=== PATIENT | female | born 1970 | race Caucasian/White ===

== ENCOUNTER 2024-06-18 12:12 | Inpatient (IN) ==
[2024-06-18] MEDS: LORazepam 1 MG TAB SL STA (12:40)
[2024-06-18] MEDS: ASPIRIN CHEW 324 MG PO STA (12:40)
[2024-06-18] MEDS: SODIUM CHLORIDE 0.9% 1,000 ML IV ONE (12:41)
[2024-06-18] MEDS: SODIUM CHLORIDE 0.9% 1,000 ML IV STA (12:43)
[2024-06-18] MEDS: METOPROLOL TARTRATE 1 MG/ML VIAL IV STA (12:57)
[2024-06-18 13:06] LABS: Basophils # (auto) 0.04 K/uL (0.00-0.20); Basophils % (auto) 0.3 %; Eosinophils # (auto) 0.05 K/uL (0.00-0.50); Eosinophils % (auto) 0.4 %; Hemoglobin 16.3 g/dl (12.0-16.0); Immature Granulocytes # (auto) 0.04 K/uL (0.01-0.20); Immature Granulocytes % (auto) 0.3 %; Lymphocytes # (auto) 2.35 K/uL (1.20-3.40); Lymphocytes % (auto) 20.4 %; Mean Corpuscular Hgb Conc 35.4 g/dL (32.0-36.0); Mean Corpuscular Volume 87.5 fL (80.0-100.0); Mean Platelet Volume 10.7 fL (9.4-12.4); Monocytes # (auto) 0.89 K/uL (0.11-0.59); Monocytes % (auto) 7.7 %; Neutrophils # (auto) 8.14 K/uL (1.40-6.50); Neutrophils % (auto) 70.9 %; Platelet Count 331 K/uL (130-400); RDW Coefficient of Variation 12.6 % (11.5-14.5); RDW Standard Deviation 40.6 fL (36.4-46.3); Red Blood Count 5.26 M/uL (4.20-5.40); White Blood Count 11.51 K/ul (4.8-10.8)
--- NOTE | 2024-06-18 13:16 | CT Scan Report ---
CT head/brain wo con CLINICAL HISTORY: 54 years-old Female with cody. Acute headache TECHNIQUE: Multiple axial CT images of the head were obtained without contrast. A dose lowering tech nique was utilized adhering to the principles of ALARA. CT DOSE: 625.8 mGy.cm COMPARISON: 04/05/2024 FINDINGS: No acute intracranial hemorrhage, midline shift, intracranial mass, hydrocephalus, territorial ischem ia or abnormal extra-axial collection. The calvarium is intact. The paranasal sinuses, mastoid air cells, and middle ear cavities are clear . IMPRESSION: No acute intracranial abnormality. ACT 112: Negative or not required by law. The above report was generated using voice recognition software. It may contain grammatical, syntax o r spelling errors. Electronically signed by: Tian Esteban M.D. 06/18/2024 1:15 PM
[2024-06-18 13:32] LABS: BUN Creatinine Ratio 23.3 (10-20); Calcium 9.8 mg/dl (8.6-10.3); Potassium 3.9 mmol/L (3.5-5.1)
[2024-06-18 13:34] LABS: D Dimer 370 ug/L FEU (0-500); Partial Thromboplastin Time 27 Seconds (21-31); Prothrombin Time 10.8 Seconds (9.0-12.0)
[2024-06-18 13:37] LABS: Troponin I High Sensitivity 2.3 pg/ml (0-14)
--- NOTE | 2024-06-18 13:37 | XRay Report ---
XR chest 1V portable CLINICAL HISTORY: Chest pain, nonspecific COMPARISON STUDY: Chest radiograph and chest CT April 07, 2024. FINDINGS: Lung volumes are normal. Lungs are clear. There is no pneumothorax or pleural effusion. Car diac size is normal. Mediastinal contours are normal. There is no evidence for pulmonary edema. IMPRESSION: No acute cardiopulmonary findings. ACT 112: Negative or not required by law. Electronically signed by: Keith Thomson M.D. 06/18/2024 1:36 PM
[2024-06-18] MEDS: dilTIAZem HCl 5 MG/ML 5 ML VIAL IV STA (14:15)
--- NOTE | 2024-06-18 14:24 | Electrocardiogram Report ---
Test Reason : Blood Pressure : */* mmHG Vent. Rate : 139 BPM Atrial Rate : 139 BPM P-R Int : 166 ms QRS Dur : 78 ms QT Int : 262 ms P-R-T Axes : 102 85 13 degrees QTcB Int : 398 ms Probable Atrial flutter Abnormal ECG When compared with ECG of 07-Apr-2024 15:16, Vent. rate has increased by 61 bpm Sinus rhythm no longer present Confirmed by Bakari Sanders ([id number]) on 06/18/2024 2:23:47 PM Referred By: Confirmed By: Bakari Sanders
--- NOTE | 2024-06-18 14:37 | Cardiology Consultation ---
Date of Consultation June 18, 2024 Assessment & Plan (1) Atrial flutter: Plan Patient admitted with recurrent atrial flutter RVR. 2nd episode in approx 2 months. Failed to convert with IV Lopressor and IV diltiazem push in the ER. Started on IV diltiazem gtt. She has low [id number] score of 1 and was not previously anticoagulated. However, would recommend starting IV heparin given persistent atrial flutter in case she would need DCCV later this admission. Change metoprolol succinate to metoprolol tartrate 25 mg TID Hopefully she will convert to NSR with the IV diltiazem in the next 24 hours. No need for echo, as this was done last month and demonstrating preserved LVEF without significant structural abnormalities Check magnesium and TSH BP controlled. Negative HS troponin. Would recommend EP referral as outpatient. Case discussed with Dr. Gonzáles I spent a total of 45 minutes on the date of service in preparation, delivery, and documentation of the care provided to this patient, excluding any time spent in the performance of separately billed services. Alicia Mijares PA-C Department of Cardiology, [facility] This chart was completed in part utilizing Speech Voice Recognition Software. Grammatical errors, random word insertions, pronoun errors, and incomplete sentences are an occasional consequence of this system due to software limitations, ambient noise, and hardware issues. Any formal questions or concerns about the content, text, or information contained within the body of this dictation should be directly addressed to the provider for clarification. Supervising Physician Co-Signing Physician Notes I have personally performed a history and physical examination on the patient. I have reviewed the advance practitioner's documentation, and I agree with, and take responsibility for the plan of care. 54-year-old female admitted with recurrent atrial flutter and rapid ventricular response. Symptoms began at approximately 11 AM. No chest discomfort or heaviness. Notes intermittent headache. CT of the head within normal limits. Blood pressure not significantly elevated. Heart rate responding to intravenous diltiazem. Recommend titration of metoprolol to 25 mg 3 times daily. Initiate IV heparin overnight. Continue IV diltiazem infusion. Possible referral for external direct cardioversion on 06/21/2024 pending clinical response to beta-karina and calcium channel karina therapy. Outpatient referral to electrophysiology to consider EPS/ablation. I spent a total of 30 minutes on the date of service in preparation, delivery, and documentation of the care provided to this patient, excluding any time spent in the performance of separately billed services. Krunal Gonzáles DO, [facility] History of Present Illness Reason for Consultation: Atrial flutter RVR Requesting Physician: Monica Hospitalist Attending Physician: Dr. Gonzáles History of Present Illness Patient is a 54 year old female who presented to [facility] ER today with complaints of palpitations, elevated HR's while at home and dull headache. HR was variable on home monitor ranging 90-140's. She called cardiology office and was referred to the ER due to high likelihood of recurrent atrial flutter. Patient was in the ER in April 2024 after a near syncopal episode and diagnosed with atrial fibrillation RVR. She successfully converted to NSR with several doses of IV diltiazem. She was evaluated by Dr. Bennett. She was started on Metoprolol succinate 25 mg daily. [id number] score was 1 and patient was felt low risk for stroke, so she was not started on anticoagulation. Since ER visit in April patient had outpatient echo which revealed normal LVEF at 55-59%, mild LVH, mildly thickened mitral valve leaflets but no signifincat MR. She also underwent outpatient ZIO which demonstrated NSR, several episodes of SVT/atrial tach with longest episode lasting 17 seconds. No atrial fib/flutter on the monitor. She was ordered to have a stress echo as well for dyspnea and recent PAF, but this has not yet been completed. Upon arrival to the ER, patient found to have atrial flutter with likely 2:1 AV conduction and ventricular rate of 139 bmp. She was treated with dose of IV metoprolol and IV diltiazem push without conversion to NSR. Now on IV diltiazem. Labs in the ER demonstrate mildly elevated WBC, but improved from prior admission. Normal kidney function. Potassium of 3.9. Magnesium not checked - pending HS troponin negative at 2.3 TSH normal Chest xray was clear Head CT was unremarkable (completed due to headache). Patient denies recent alcohol or excessive caffeine intake. She denies recent palpitations since April. Has been taking metoprolol 25 mg daily without missed or skipped doses. She admits to not sleeping well and has upcoming sleep med evaluation. She admits to increased emotional stressors over the last several months. Patient was in normal state of health this morning upon awakening. She reports this episode started around 12:30 PM today. At time of evaluation, patient resting in bed comfortably. at bedside. Denies chest pain. Feels it is difficult to take a deep breath and feels the palpitations. Allergies Allergy/AdvReac Type Severity Reaction Status Date / Time lavender (Lavandula AdvReac Rash Unverified 06/18/24 14:44 angustifolia) Home Medications Medication Instructions Recorded Confirmed Type metoprolol succinate 25 mg 25 mg PO DAILY #90 tabs 04/07/24 06/18/24 Rx tablet,extended release 24 hr (Toprol XL) multivitamin 1 tab PO DAILY 04/07/24 06/18/24 History ascorbic acid (vitamin C) 500 mg 500 mg PO DAILY 06/18/24 06/18/24 History tablet (Vitamin C) cholecalciferol (vitamin D3) 10 400 unit PO DAILY 06/18/24 06/18/24 History mcg (400 unit) tablet (Vitamin D3) ferrous sulfate 324 mg (65 mg 324 mg PO Q OTHER DAY 06/18/24 06/18/24 History iron) tablet,delayed release Patient History Medical History PAF (paroxysmal atrial fibrillation) Surgical History History of delivery Family History Other Cancer Diabetes Social History Smoking Status: Former smoker Tobacco Type: Cigarettes Hx Alcohol Use: No Hx Substance Use: No Preferred Language: German Feels Safe at Home: Yes Review of Systems Review of Systems: All systems reviewed & are unremarkable except as noted in HPI & below Physical Exam Constitutional: WD/WN, vitals as above no acute distress Neck: trachea midline, no thyromegaly Respiratory: normal respiratory effort, lungs clear to auscultation Cardiovascular: Rate/Rhythm: + tachycardic and + irregularly irregular Heart Sounds: no murmur Vessels: no JVD Extremities: no edema Gastrointestinal (Abdomen): normal bowel sounds, soft, nontender, no hepatosplenomegaly Musculoskeletal: no cyanosis or clubbing, extremities motor strength 5/5 Neurologic: PERRL, EOMI, accommodation nl, no face palsy, no dysarthria Results & Data Vital Signs (Past 12 Hours) Vital Signs Temp Pulse Pulse Resp BP BP Pulse Ox 06/18/24 14:16 132 H 18 105/74 06/18/24 12:57 139 H 108/83 06/18/24 12:18 36.6 C 141 H 28 H 130/81 100 06/18/24 12:13 O2 Del Method 06/18/24 14:16 06/18/24 12:57 06/18/24 12:18 Room Air 06/18/24 12:13 Room Air Laboratory Results Cardiac Enzymes 06/18/24 Range/Units 12:45 Troponin I High Sens 2.3 (0-14) pg/ml Coagulation 06/18/24 Range/Units 12:45 PT 10.8 (9.0-12.0) Seconds APTT 27 (21-31) Seconds CBC 06/18/24 Range/Units 12:45 WBC 11.51 H (4.8-10.8) K/ul RBC 5.26 (4.20-5.40) M/uL Hgb 16.3 H (12.0-16.0) g/dl Hct 46.0 (37.0-47.0) % Plt Count 331 (130-400) K/uL Neut # (Auto) 8.14 H (1.40-6.50) K/uL Lymph # (Auto) 2.35 (1.20-3.40) K/uL Preble # (Auto) 0.89 H (0.11-0.59) K/uL Eos # (Auto) 0.05 (0.00-0.50) K/uL Baso # (Auto) 0.04 (0.00-0.20) K/uL Comprehensive Metabolic Panel 06/18/24 Range/Units 12:45 Sodium 140 (136-145) mmol/L Potassium 3.9 (3.5-5.1) mmol/L Chloride 103 (98-107) mmol/L Carbon Dioxide 29 (21-32) mmol/L BUN 20 (6-23) mg/dl Creatinine 0.86 (0.6-1.2) mg/dl Glucose 89 (70-99(Fasting)) mg/dl Calcium 9.8 (8.6-10.3) mg/dl Intake and Output 06/17/24 06/18/24 06/18/24 22:59 06:59 14:59 Other: Weight 101.8 kg Weight Measurement Method Chair Scale Patient Weight 06/19/24 06:59 Weight 101.8 kg Diagnostic Findings Telemetry reviewed: Atrial flutter with variable ventricular rates ranging 100- 130's EKG reviewed from admission dated 06/18/24: Atrial flutter with RVR at 139 bmp NO acute ischemic changes Chest X-Ray 06/18/24 12:34 XR chest 1V portable CLINICAL HISTORY: Chest pain, nonspecific COMPARISON STUDY: Chest radiograph and chest CT April 07, 2024. FINDINGS: Lung volumes are normal. Lungs are clear. There is no pneumothorax or pleural effusion. Cardiac size is normal. Mediastinal contours are normal. There is no evidence for pulmonary edema. IMPRESSION: No acute cardiopulmonary findings. ACT 112: Negative or not required by law. Electronically signed by: Keith Thomson M.D. 06/18/2024 1:[address] 06/18/24 12:35 CT head/brain wo con CLINICAL HISTORY: 54 years-old Female with cody. Acute headache TECHNIQUE: Multiple axial CT images of the head were obtained without contrast. A dose lowering technique was utilized adhering to the principles of ALARA. CT DOSE: 625.8 mGy.cm COMPARISON: 04/05/2024 FINDINGS: No acute intracranial hemorrhage, midline shift, intracranial mass, hydrocephalus, territorial ischemia or abnormal extra-axial collection. The calvarium is intact. The paranasal sinuses, mastoid air cells, and middle ear cavities are clear. IMPRESSION: No acute intracranial abnormality. ACT 112: Negative or not required by law. Outpatient records reviewed: Outpatient ZIO monitor, 14 days reviewed dated April 08, 2024: Patient had a min HR of 47 bpm, max HR of 188 bpm, and avg HR of 68 bpm. Predominant underlying rhythm was Sinus Rhythm. First Degree AV Block was present. Slight P wave morphology changes were noted. 28 Supraventricular Tachycardia runs occurred, the run with the fastest interval lasting 11 beats with a max rate of 188 bpm, the longest lasting 17.5 secs with an avg rate of 132 bpm. Some episodes of Supraventricular Tachycardia may be possible Atrial Tachycardia with variable block. Isolated SVEs were rare (<1.0%), SVE Couplets were rare (<1.0%), and SVE Triplets were rare (<1.0%). Isolated VEs were rare (<1.0%, 87), VE Couplets were rare (<1.0%, 5), and VE Triplets were rare (<1.0%, 1). The patient recorded 2 event markers and 2 diary entries which correlated with sinus rhythm and sinus rhythm with atrial ectopic beats Impression: Sinus rhythm, average rate 68 beats per minute with 28 runs of supraventricular tachycardia. Distinct atrial fibrillation or flutter not noted. Longest episode 17.5 seconds in duration Echo reviewed dated April 22, 2024: Interpretation Summary The left ventricular cavity size is normal. The LV wall thickness is borderline increased (concentric). The left ventricular wall motion is normal. The qualitative LV ejection fraction is 55-59% (normal). The left ventricular diastolic function is normal. The left atrium is normal sized. The mitral valve leaflets are very mildly thickened with trace mitral insufficiency. There is no other valvular disease Medications Administered Current Inpatient Medications Diltiazem HCl 125 mg/ Dextrose 125 mls @ 5 mls/hr IV .Q24H [facility]; Protocol Stop: 07/18/24 14:29 Last Admin: 06/18/24 14:43 Dose: 5 mg/hr, 5 mls/hr (1) Atrial flutter Atrial flutter type: typical Qualified Code(s): I48.3 - Typical atrial flutter
[2024-06-18] MEDS: dilTIAZem HCL 125 MG in DEXTROSE 5% 100 ML IV SCH (14:43)
[2024-06-18] MEDS: STAT IV Infusion **Titration per Protocol STA (14:46)
--- NOTE | 2024-06-18 15:06 | History & Physical Report ---
Date of Service June 18, 2024 Assessment & Plan (1) Atrial flutter with rapid ventricular response: Plan: Patient is 54 year old female with PMH PAF not on anticoagulation presented to ER with c/o palpitations today. In ER found to have HR 130's-140's, other vitals stable. EKG consistent with atrial flutter In ER given 1L NSS, Lopressor 2.5 IV, started on diltiazem drip, Ativan 1 mg SL, 324mg aspirin. HR remains in 130's. CT head: no acute intracranial findings CXR: no acute intracranial findings K: 3.9. Troponin negative, negative D-dimer Magnesium and TSH labs pending Monitor on telemetry 04/08/2204/22/2024 with EF: 55-59%, normal LV wall motion, trace mitral insufficiency Continue diltiazem drip Cardiology consult. Spoke with cardiology who recommends starting metoprolol tartrate 25mg po TID and starting heparin drip EKG in am CBC, BMP, magnesium labs in am DVT Prophylaxis On Heparin IV Admit PCU Full Code as per discussion with pt Follows with Dr Zhou for routine care Pt was seen and care coordinated with Dr Meadows. See addendum I spent a total of 60 minutes reviewing notes, outpatient records, labs, medication, coordinating, documenting and providing care for this patient excluding time spent in the performance of separately billed services. History of Present Illness Chief Complaint: Palpitations Primary Care Provider: Barry Zhou MD Patient is 54 year old female with PMH PAF not on anticoagulation presented to ER with c/o palpitations today. patient reports was working from home today when she had sudden onset of palpitations, sensation of heart racing, headache, shortness of breath and some nausea without vomiting. She reports checking her Fitbit and heart rate was between 130s to 140s and reports home BP 120/74. Denies chest pain, dizziness, syncope. Denies any recent illness. She reports she has stress related to work. Denies any alcohol use since April. Denies fever/chills, diaphoresis, diarrhea, constipation, syncope, vision changes, neck pain, cough, sore throat, rhinorrhea, abdominal pain, paresthesias, extremity weakness, extremity edema, rashes, urinary symptoms. Per chart review history [facility] ER visit 04/05/2024 for atrial fibrillation RVR started on diltiazem drip and converted to sinus rhythm and was able to be discharged home from ER on metoprolol succinate 25 mg daily and was thought to be secondary to ETOH intake/holiday heart. Patient had followed up with [facility] cardiology and had echo on 04/08/2204/22/2024 with EF: 55-59%, normal LV wall motion, trace mitral insufficiency. Had outpatient ZIO monitor that did not show atrial fibrillation but showed brief runs of SVT per chart review. Allergies Allergy/AdvReac Type Severity Reaction Status Date / Time lavender (Jennifer AdvReac Rash Unverified 06/18/24 14:44 angustifolia) Home Medications Medication Instructions Recorded Confirmed Type metoprolol succinate 25 mg 25 mg PO DAILY #90 tabs 04/07/24 06/18/24 Rx tablet,extended release 24 hr (Toprol XL) multivitamin 1 tab PO DAILY 04/07/24 06/18/24 History ascorbic acid (vitamin C) 500 mg 500 mg PO DAILY 06/18/24 06/18/24 History tablet (Vitamin C) cholecalciferol (vitamin D3) 10 400 unit PO DAILY 06/18/24 06/18/24 History mcg (400 unit) tablet (Vitamin D3) ferrous sulfate 324 mg (65 mg 324 mg PO Q OTHER DAY 06/18/24 06/18/24 History iron) tablet,delayed release Past Med/Surg History Problem List (Updated 06/18/24 @ 15:43 by Mariana Ho PA-C) Iron deficiency Atrial flutter with rapid ventricular response [place] atrial fibrillation Atrial flutter Medical History PAF (paroxysmal atrial fibrillation) Surgical History History of delivery Family History Other Cancer Diabetes Social History Smoking Status: Former smoker Tobacco Type: Cigarettes Hx Alcohol Use: No Hx Substance Use: No Preferred Language: Maltese Efficiency Miner Required: No Beliefs That Will Affect Care: None Current Living Situation: Spouse Feels Safe at Home: Yes Safety Concerns: Feels Safe At This Time Assistive Devices: None Review of Systems Review of Systems: All systems reviewed & are unremarkable except as noted in HPI & below Physical Exam Physical Exam: General: no distress, WDWN Head: normocephalic, atraumatic Eyes: conjunctiva non-injected, anicteric ENT: normal inspection external ears, nose, mucous membranes moist Neck: supple, trachea midline Lungs: clear, no respiratory distress, no wheezing/rhonchi/rales CV: irregularly irregular, rate 132, no pretibial edema Abd: normal BS, soft, non-tender Ext: no cyanosis, no calf tenderness Neuro: A&O x 3, no focal deficits noted, normal affect Skin: warm, dry Results & Data Results & Data Vital Signs (Past 12 Hours) Vital Signs Temp Pulse Pulse Resp BP BP Pulse Ox 06/18/24 14:18 132 H 20 105/74 97 06/18/24 14:16 132 H 18 105/74 06/18/24 12:57 139 H 108/83 06/18/24 12:18 36.6 C 141 H 28 H 130/81 100 06/18/24 12:13 O2 Del Method 06/18/24 14:18 06/18/24 14:16 06/18/24 12:57 06/18/24 12:18 Room Air 06/18/24 12:13 Room Air Laboratory Results Short CBC 06/18/24 Range/Units 12:45 WBC 11.51 H (4.8-10.8) K/ul Hgb 16.3 H (12.0-16.0) g/dl Hct 46.0 (37.0-47.0) % Plt Count 331 (130-400) K/uL BMP 06/18/24 12:45 Sodium 140 Potassium 3.9 Chloride 103 Carbon Dioxide 29 BUN 20 Creatinine 0.86 Glucose 89 Calcium 9.8 Diagnostic Findings Chest X-Ray 06/18/24 12:34 XR chest 1V portable CLINICAL HISTORY: Chest pain, nonspecific COMPARISON STUDY: Chest radiograph and chest CT April 07, 2024. FINDINGS: Lung volumes are normal. Lungs are clear. There is no pneumothorax or pleural effusion. Cardiac size is normal. Mediastinal contours are normal. There is no evidence for pulmonary edema. IMPRESSION: No acute cardiopulmonary findings. ACT 112: Negative or not required by law. Electronically signed by: Keith Thomsno M.D. 06/18/2024 1:[address] 06/18/24 12:35 CT head/brain wo con CLINICAL HISTORY: 54 years-old Female with cody. Acute headache TECHNIQUE: Multiple axial CT images of the head were obtained without contrast. A dose lowering technique was utilized adhering to the principles of ALARA. CT DOSE: 625.8 mGy.cm COMPARISON: 04/05/2024 FINDINGS: No acute intracranial hemorrhage, midline shift, intracranial mass, hydrocephalus, territorial ischemia or abnormal extra-axial collection. The calvarium is intact. The paranasal sinuses, mastoid air cells, and middle ear cavities are clear. IMPRESSION: No acute intracranial abnormality. ACT 112: Negative or not required by law. The above report was generated using voice recognition software. It may contain grammatical, syntax or spelling errors. Electronically signed by: Tian Esteban M.D. 06/18/2024 1:15 PM ECG Additional Comments: Aflutter RVR per my interpretation Supervising Physician Co-Signing Physician Notes 54 yo F w/ PMH of AFib on metoprolol presented to ED w/ c/o palpitations. Pt states she was working from home, and suddenly she started feeling her hear rate racing, a/w sob and headache. She reports relief in her headache w/ aspirin in ED and sob w/ ativan in ED. She denies any other ROS in the recent past week, denies fever/flu like illness/nausea/diarrhea/cough/sore throat. She reports compliance w/ her metoprolol and took her home metoprolol in the AM. Labs reviewed, fairly at baseline. K 3.9, Mg Pending, Trop 2.3, TSH pending. CXR w/ no acute process. EKG w/ a flutter in 139. Recent ECHO from Apr reviewed in OP chart. s/p IVF x 2L, cardizem bolus and ongoing drip, lopressor 2.5 mg iv x 1, ativan and aspirin in the ED. Aflutter rvr: c/w cardizem drip, KCL 20 meq, await Mg level, tele monitoring, NSS at 70 ml/hr x 2 bag, cardio consult. Recent echo in OP chart.d/w cards, lopressor 25 mg tid from now and heparin drip, uptitrate as needed, lopressor 2.5 mg iv q6h prn for HR > 130 bpm. can have diet, npo midnight. On exam GENERAL: Alert and oriented x3. NAD, on RA. HEENT: No pallor, no icterus. Pupils equal, round and reactive to light. Oral mucosa moist. NECK: No JVD, no neck masses. HEART: S1 and S2 heard. irregular rate and rhythm. HR in 130s. No murmur, no gallop. RESPIRATORY SYSTEM: Normal AP diameter. No accessory muscle use. No wheezing, no crackles. ABDOMEN: Soft, bowel sounds present, nontender, no distention. CENTRAL NERVOUS SYSTEM: No facial droop. Speech is clear. Obeys simple commands. Moves extremities. EXTREMITIES: No edema, no erythema seen. I have seen and examined the patient and have discussed the case with the provider above. I agree with the assessment and plan as stated. Time spent: 25 min
[2024-06-18] MEDS ORDERED: METOPROLOL TARTRATE 1 MG/ML VIAL IV PRN (15:17)
[2024-06-18] MEDS ORDERED: ACETAMINOPHEN 325 MG TAB PO PRN (15:47)
[2024-06-18] MEDS ORDERED: ONDANSETRON INJ 2 MG/ML 2 ML VIAL IV PRN (15:47)
[2024-06-18] MEDS ORDERED: POLYETHYLENE (MIRALAX) 17 GM PACK PO PRN (15:47)
[2024-06-18] MEDS: SODIUM CHLORIDE 0.9% 1,000 ML IV SCH (16:01)
[2024-06-18] MEDS: POTASSIUM CHLORIDE CRTAB 20 MEQ TABCR PO STA (16:36)
[2024-06-18] MEDS: FERROUS SULFATE 325 MG TAB PO SCH (16:37)
[2024-06-18] MEDS: METOPROLOL TARTRATE 25 MG TAB PO STA (16:37)
[2024-06-18] MEDS: Heparin IV Adult Wt-Based Low-Dose *NO* INITIAL Bolus Protocol IV STA (16:38)
[2024-06-18] MEDS: HEPARIN SODIUM/DEXTROSE 25,000 UNITS/500 ML BAG IV SCH (16:38)
[2024-06-18 18:15] LABS: Magnesium 1.8 mg/dl (1.7-2.4)
[2024-06-18 18:30] LABS: Thyroid Stimulating Hormone 1.377 uIu/ml (0.300-4.500)
--- NOTE | 2024-06-18 20:20 | Emergency Department Note ---
History of Present Illness General Chief Complaint: Cardiac Assessment Stated Complaint: TACHYCARDIA, CHEST PAIN, SOB, HEADACHE Time Seen by Provider: 06/18/24 12:24 History of Present Illness Provider Complaint: + palpitations Onset (ago): 1 hour(s) Duration: + Constant Severity: similar to previous episodes Maximum Pain Intensity: 7 Context: + occurred during rest Arrhythmia history: + atrial fibrillation; no on anti-coagulants Associated symptoms: + other (Headache); no chest pain, no shortness of breath, no syncope, no vomiting or no cough Treatments prior to arrival: + beta-karina Home Medications Medication Instructions Recorded Confirmed Type metoprolol succinate 25 mg 25 mg PO DAILY #90 tabs 04/07/24 06/18/24 Rx tablet,extended release 24 hr (Toprol XL) multivitamin 1 tab PO DAILY 04/07/24 06/18/24 History ascorbic acid (vitamin C) 500 mg 500 mg PO DAILY 06/18/24 06/18/24 History tablet (Vitamin C) cholecalciferol (vitamin D3) 10 400 unit PO DAILY 06/18/24 06/18/24 History mcg (400 unit) tablet (Vitamin D3) ferrous sulfate 324 mg (65 mg 324 mg PO Q OTHER DAY 06/18/24 06/18/24 History iron) tablet,delayed release Allergies Allergy/AdvReac Type Severity Reaction Status Date / Time lavender (Lavandula AdvReac Rash Unverified 06/18/24 14:44 angustifolia) Past Med/Surg History Problem List (Updated 06/18/24 @ 20:20 by Jim Wharton MD) Iron deficiency Atrial flutter with rapid ventricular response (Acute) Lone atrial fibrillation Atrial flutter Medical History PAF (paroxysmal atrial fibrillation) Surgical History History of delivery Family History Other Cancer Diabetes Social History Smoking Status: Former smoker Tobacco Type: Cigarettes Hx Alcohol Use: No Hx Substance Use: No Preferred Language: Setswana Drawer Upfitter Required: No Beliefs That Will Affect Care: None Current Living Situation: Spouse Feels Safe at Home: Yes Safety Concerns: Feels Safe At This Time Assistive Devices: None Physical Exam 2 Vital Signs: Vital Signs - 24 hr 06/18/24 12:13 06/18/24 12:18 06/18/24 12:57 Temperature 36.6 C Temperature Source Temporal Artery Sc an Pulse Rate 141 H 139 H Pulse Rate [Apical ] Pulse Rate from Sp O2 Sensor Respiratory Rate 28 H Respiratory Effort / Characteristics Short of Breath Respiratory Depth Respiratory Patter n Tachypnea Blood Pressure 130/81 108/83 Blood Pressure [Le ft Arm] Blood Pressure Kristal n 97 Blood Pressure Kristal n [Left Arm] Blood Pressure Pos ition Sitting Pulse Oximetry 100 Oxygen Delivery Me thod Room Air Room Air Sepsis Recent Feve r Within 48 Hours No Sepsis New/Unexpla ined Change in Men marlyn Status No Sepsis Action Take n by Nursing No Action Required 06/18/24 14:16 06/18/24 14:16 06/18/24 14:18 Temperature Temperature Source Pulse Rate 132 H 132 H Pulse Rate [Apical ] 132 H Pulse Rate from Sp O2 Sensor 129 H Respiratory Rate 18 20 Respiratory Effort / Characteristics Non-Labored Sponta neous Respiratory Depth Normal Respiratory Patter n Blood Pressure 105/74 Blood Pressure [Le ft Arm] 105/74 Blood Pressure Kristal n 84 Blood Pressure Kristal n [Left Arm] 84 Blood Pressure Pos ition Pulse Oximetry 97 Oxygen Delivery Me thod Sepsis Recent Feve r Within 48 Hours Sepsis New/Unexpla ined Change in Men marlyn Status Sepsis Action Take n by Nursing Physical Exam: Physical Exam GENERAL: oriented to person, place, and time. appears well-developed and well- nourished. HENT: Exam performed. - Head: Normocephalic and atraumatic. EYES: Conjunctivae and EOM are normal. Right eye exhibits no discharge. Left eye exhibits no discharge. No scleral icterus. NECK: Normal range of motion. Neck supple. No JVD present. CV: Tachycardic rate, regular rhythm, normal heart sounds and intact distal pulses. There is no peripheral edema. Palpable radial pulses bue. PULM/CHEST: Effort normal and breath sounds normal. No respiratory distress. No stridor. no wheezes. no rales. ABD: The abdomen is soft. There is no tenderness. NEURO: Motor and sensation grossly intact. SKIN: Skin is warm and dry. He is not diaphoretic. PSYCH: normal mood and affect. Behavior is normal. Judgment and thought content normal. Course Course 1224: The patient was evaluated in room A12. A complete history and physical exam was performed Cardiac monitoring: An order was placed for continuous cardiac monitoring. The monitor shows a rate of 130 with sinus tachycardia rhythm interpreted by me 1420: Patient remained tachycardic in the 130s despite IV fluids IV IV metoprolol and sublingual Ativan. Patient CT of the head was conducted within 6 hours of symptom onset and is negative effectively ruling out SAH. Labs are unremarkable including no significant leukocytosis negative D-dimer and negative troponin. It is thought that the the patient could be an underlying atrial flutter. Cardizem 10 mg IV push was administered and there was improvement of the ventricular rate which then displayed the atrial flutter. Discussed case with cardiology and Dr. Gonzáles agrees the patient is in atrial flutter. Both he and I feel like the patient should be started on Cardizem drip and admitted to the hospital service. Aspirin administered to the patient. JEIMY?DS?-VASc Score for Atrial Fibrillation Stroke Risk from [email or web address] on 06/18/2024 All calculations should be rechecked by clinician prior to use RESULT SUMMARY: 1 points Stroke risk was 0.6% per year in >90,000 patients (the [place] Atrial Fibrillation Cohort Study) and 0.9% risk of stroke/TIA/systemic embolism. One recommendation suggests a 0 score for men or 1 score for women (no clinical risk factors) is low risk and may not require anticoagulation; a 1 score for men or 2 score for women is low-moderate risk and should consider anticoagulation; and a score >= for men or >= for women is moderate-high risk and should otherwise be an anticoagulation candidate. INPUTS: Age > 0 = <65 Sex > 1 = Female CHF history > 0 = No Hypertension history > 0 = No Stroke/TIA/thromboembolism history > 0 = No Vascular disease history (prior GA, peripheral artery disease, or aortic plaque) > 0 = No Diabetes history > 0 = No Administered Medications Ferrous Sulfate (Ferrous Sulfate 325 Mg Tab) 324 mg PO Q2D@0900 BECKY Stop: 07/18/24 16:29 Last Admin: 06/18/24 16:37 Dose: 325 mg Documented By: Diltiazem HCl 125 mg/ Dextrose 125 mls @ 5 mls/hr IV .Q24H BECKY; Protocol Stop: 07/18/24 14:29 Last Titration: 06/18/24 18:59 Dose: 5 mg/hr, 5 mls/hr Documented By: KENZIE Co-signed By: Admin: 06/18/24 14:43 Dose: 5 mg/hr, 5 mls/hr Documented By: LEROY Co-signed By: LUCY Sodium Chloride (Nss) 1,000 mls @ 70 mls/hr IV .[id number] BECKY Stop: 06/19/24 20:04 Last Admin: 06/18/24 16:01 Dose: 70 mls/hr Documented By: Heparin Sodium/Dextrose (Heparin Sodium/Dextrose) 25,000 units in 500 mls @ 19 mls/hr IV .Q24H BECKY; Protocol Stop: 07/18/24 15:44 Last Titration: 06/18/24 18:58 Dose: 950 units/hr, 19 mls/hr Documented By: KENZIE Co-signed By: Admin: 06/18/24 16:38 Dose: 950 units/hr, 19 mls/hr Documented By: Co-signed By: MARITZA Discontinued Medications Aspirin (Aspirin Chew 324 Mg) 324 mg PO NOW STA Stop: 06/18/24 12:35 Last Admin: 06/18/24 12:40 Dose: 324 mg Documented By: LEROY Diltiazem HCl (Diltiazem Hcl 5 Mg/Ml 5 Ml Vial) 10 mg IV NOW STA Stop: 06/18/24 14:13 Last Admin: 06/18/24 14:15 Dose: 10 mg Documented By: LEROY Co-signed By: VALENTE Heparin Sodium/Dextrose (Heparin Iv Adult Wt-Based Low-Dose *No* Initial Bolus Protocol) 1 each IV ONE STA; Protocol Stop: 06/18/24 15:39 Last Admin: 06/18/24 16:38 Dose: 1 each Documented By: Sodium Chloride (Nss) 1,000 mls @ 999 mls/hr IV .Q1H1M STA Stop: 06/18/24 13:34 Last Admin: 06/18/24 12:43 Dose: Not Given Documented By: LEROY Sodium Chloride (Nss) 1,000 mls @ 999 mls/hr IV .Q1H1M ONE Stop: 06/18/24 13:37 Last Infusion: 06/18/24 16:28 Dose: Infused Documented By: Admin: 06/18/24 12:41 Dose: 999 mls/hr Documented By: LEROY Lorazepam (Lorazepam 1 Mg Tab) 1 mg SL NOW STA Stop: 06/18/24 12:38 Last Admin: 06/18/24 12:40 Dose: 1 mg Documented By: LEROY Metoprolol Tartrate (Metoprolol Tartrate 1 Mg/Ml Vial) 2.5 mg IV NOW STA Stop: 06/18/24 12:40 Last Admin: 06/18/24 12:57 Dose: 2.5 mg Documented By: LEROY Metoprolol Tartrate (Metoprolol Tartrate 25 Mg Tab) 25 mg PO ONE STA Stop: 06/18/24 15:39 Last Admin: 06/18/24 16:37 Dose: 25 mg Documented By: Miscellaneous (Stat Iv Infusion Titration Per Protocol) 1 each N/A NOW STA Stop: 06/18/24 14:21 Last Admin: 06/18/24 14:46 Dose: Not Given Documented By: LEROY Potassium Chloride (Potassium Chloride Crtab 20 Meq Tabcr) 20 meq PO NOW STA Stop: 06/18/24 15:17 Last Admin: 06/18/24 16:36 Dose: 20 meq Documented By: Medical Decision Making Medical Records Attestation: I reviewed the patient's medical records. External medical records reviewed. Patient was seen in the emergency department in April 2024 for atrial fibrillation RVR. Patient was given IV Cardizem and placed on Cardizem drip which eventually terminated her A-fib and put the patient back into sinus rhythm. Patient was eval by cardiology and discharged with outpatient follow-up as well as prescription for metoprolol. Laboratory Data Attestation: I reviewed the patient's lab results. 06/18/24 12:45 06/18/24 12:45 Lab Results 06/18/24 Range/Units 12:45 WBC 11.51 H (4.8-10.8) K/ul RBC 5.26 (4.20-5.40) M/uL Hgb 16.3 H (12.0-16.0) g/dl Hct 46.0 (37.0-47.0) % MCV 87.5 (80.0-100.0) fL MCH 31.0 (25.0-34.0) pg MCHC 35.4 (32.0-36.0) g/dL RDW Std Deviation 40.6 (36.4-46.3) fL RDW Coeff of Wendy 12.6 (11.5-14.5) % Plt Count 331 (130-400) K/uL MPV 10.7 (9.4-12.4) fL Immature Gran % (Auto) 0.3 % Neut % (Auto) 70.9 % Lymph % (Auto) 20.4 % [place] % (Auto) 7.7 % Eos % (Auto) 0.4 % Baso % (Auto) 0.3 % Neut # (Auto) 8.14 H (1.40-6.50) K/uL Lymph # (Auto) 2.35 (1.20-3.40) K/uL [place] # (Auto) 0.89 H (0.11-0.59) K/uL Eos # (Auto) 0.05 (0.00-0.50) K/uL Baso # (Auto) 0.04 (0.00-0.20) K/uL Immature Gran # (Auto) 0.04 (0.01-0.20) K/uL PT 10.8 (9.0-12.0) Seconds INR 1.0 (0.9-1.1) APTT 27 (21-31) Seconds PTT Ratio 1.0 D-Dimer 370 (0-500) ug/L FEU Sodium 140 (136-145) mmol/L Potassium 3.9 (3.5-5.1) mmol/L Chloride 103 (98-107) mmol/L Carbon Dioxide 29 (21-32) mmol/L Anion Gap 8 (3-11) BUN 20 (6-23) mg/dl Creatinine 0.86 (0.6-1.2) mg/dl Est Cr Clr Drug Dosing 95.0 ml/min eGFR 80.23 BUN/Creatinine Ratio 23.3 H (10-20) Glucose 89 (70-99(Fasting)) mg/dl Calcium 9.8 (8.6-10.3) mg/dl Magnesium 1.8 (1.7-2.4) mg/dl Troponin I High Sens 2.3 (0-14) pg/ml Lipase 43 (11-82) U/L TSH 1.377 (0.300-4.500) uIu/ml Imaging Data Attestation: I personally reviewed and interpreted this imaging study as follows: My Impression: Chest x-ray negative. Airway clear. No pneumothorax. No consolidation. No cardiomegaly or cephalization.. No free air under the diaphragm. No fractures of the skeletal structures. Radiologist's Impression: Chest X-Ray 06/18/24 12:34 XR chest 1V portable CLINICAL HISTORY: Chest pain, nonspecific COMPARISON STUDY: Chest radiograph and chest CT April 07, 2024. FINDINGS: Lung volumes are normal. Lungs are clear. There is no pneumothorax or pleural effusion. Cardiac size is normal. Mediastinal contours are normal. There is no evidence for pulmonary edema. IMPRESSION: No acute cardiopulmonary findings. ACT 112: Negative or not required by law. Electronically signed by: Keith Thomson M.D. 06/18/2024 1:[address] 06/18/24 12:35 CT head/brain wo con CLINICAL HISTORY: 54 years-old Female with cody. Acute headache TECHNIQUE: Multiple axial CT images of the head were obtained without contrast. A dose lowering technique was utilized adhering to the principles of ALARA. CT DOSE: 625.8 mGy.cm COMPARISON: 04/05/2024 FINDINGS: No acute intracranial hemorrhage, midline shift, intracranial mass, hydrocephalus, territorial ischemia or abnormal extra-axial collection. The calvarium is intact. The paranasal sinuses, mastoid air cells, and middle ear cavities are clear. IMPRESSION: No acute intracranial abnormality. ACT 112: Negative or not required by law. The above report was generated using voice recognition software. It may contain grammatical, syntax or spelling errors. Electronically signed by: Tian Esteban M.D. 06/18/2024 1:15 PM ECG Data Attestation: I personally reviewed and interpreted this ECG as follows: Additional Comments: EKG #1 at 1227: Sinus tachycardia with a rate of 139. ID [id number] QRS [address] elevation or ST depression EKG #2 at 1237: Sinus tachycardia with a rate of 139. ID [id number] QRS 78 QTc [address] elevation or ST depression. EKG #3 at 1318 status post sublingual Ativan IV fluids and IV metoprolol: Sinus tachycardia versus atrial flutter with a rate of 133. ID 162 QRS [address] elevation or ST depression. EKG #4 at 1418 status post 10 mg Cardizem bolus: Atrial flutter with rate of 114. QRS [address] elevation or ST depression. [facility] Narrative 1224: The patient was evaluated in room A12. A complete history and physical exam was performed Cardiac monitoring: An order was placed for continuous cardiac monitoring. The monitor shows a rate of 130 with sinus tachycardia rhythm interpreted by me 1420: Patient remained tachycardic in the 130s despite IV fluids IV IV metoprolol and sublingual Ativan. Patient CT of the head was conducted within 6 hours of symptom onset and is negative effectively ruling out SAH. Labs are unremarkable including no significant leukocytosis negative D-dimer and negative troponin. It is thought that the the patient could be an underlying atrial flutter. Cardizem 10 mg IV push was administered and there was improvement of the ventricular rate which then displayed the atrial flutter. Discussed case with cardiology and Dr. Gonzáles agrees the patient is in atrial flutter. Both he and I feel like the patient should be started on Cardizem drip and admitted to the hospital service. Aspirin administered to the patient. JEIMY?DS?-VASc Score for Atrial Fibrillation Stroke Risk from [email or web address] on 06/18/2024 All calculations should be rechecked by clinician prior to use RESULT SUMMARY: 1 points Stroke risk was 0.6% per year in >90,000 patients (the [place] Atrial Fibrillation Cohort Study) and 0.9% risk of stroke/TIA/systemic embolism. One recommendation suggests a 0 score for men or 1 score for women (no clinical risk factors) is low risk and may not require anticoagulation; a 1 score for men or 2 score for women is low-moderate risk and should consider anticoagulation; and a score >= for men or >= for women is moderate-high risk and should otherwise be an anticoagulation candidate. INPUTS: Age > 0 = <65 Sex > 1 = Female CHF history > 0 = No Hypertension history > 0 = No Stroke/TIA/thromboembolism history > 0 = No Vascular disease history (prior GA, peripheral artery disease, or aortic plaque) > 0 = No Diabetes history > 0 = No Impression & Plan Atrial flutter with rapid ventricular response Critical Care Time Critical Care Time: Yes Total Critical Care Time: 45 I have personally spent greater than 45 minutes of critical care time in the direct management of this patient. This includes bedside care, interpretation of diagnostic studies, and testing, discussion with consultants, patient, and family members, and other required patient management activities. This 45 minutes is in excess of all separately billable procedures. Discharge Plan Visit Data Chief Complaint: Cardiac Assessment Stated Complaint: TACHYCARDIA, CHEST PAIN, SOB, HEADACHE ED Provider: Jim Wharton Discharge Problem: Atrial flutter with rapid ventricular response Patient Disposition: Admitted As Inpatient Discharge Instructions Interventions: ED Discharge Assessment Last Done: 06/18/24 15:14
[2024-06-18] MEDS ORDERED: METOPROLOL TARTRATE 25 MG TAB PO SCH (21:00)
[2024-06-18] MEDS: METOPROLOL TARTRATE 25 MG TAB PO SCH (21:17)
[2024-06-18] MEDS: DIGOXIN 250 MCG in SYRINGE 9 ML IV ONE (21:38)
[2024-06-18] MEDS: POTASSIUM CHLORIDE 10 MEQ in LACTATED RINGER'S 1,000 ML IV ONE (21:45)
[2024-06-18] MEDS: MAGNESIUM SULFATE / D5W 1 GM/100 ML BAG IV ONE (21:47)
--- OUTSIDE RECORDS SUMMARY | 2024-06-18 23:10 | External Medical Summary | Summary of Care ---
Author Name Unknown Organization [facility] Address [address] [place] [address] Phone [phone] Care Team Providers Care Cupola Mechanic Name Role Phone Barry hZou MD Primary Care Provider + Reason for Visit * Reason Onset Date Comments Test Results 04/26/2024 Encounter Details Date Type Department Care Team (Late st Contact Info) Description 04/26/2024 Telephone Family Practice [facility] [address] [place] [id number] Barry Zhou MD [address] [facility] [place] [id number] Test Results Allergies No known active allergiesdocumented as of this encounter (statuses as of 04/27/2024) Medications Medication Sig Dispensed Refills Start Date End Date Status IBUPROFEN 200 MG PO CAPS as needed Active Multiple Vitamins-Minerals (MULTIVITAMIN ADULT) TABS Take by mouth. Active Metoprolol Succinate ER 25 MG Oral Tablet Extended Release 24 Hour (toPROL XL) Take 1 Tablet by mouth in the morning. 04/07/2024 Active Ferrous Sulfate 325 (65 Fe) MG Oral Tablet (Feosol) 1 tab by mouth every other day 45 Tablet 1 04/26/2024 Active documented as of this encounter (statuses as of 04/27/2024) Active Problems Problem Noted Date Diagnosed Date Iron deficiency 04/26/2024 Paroxysmal atrial fibrillation 04/19/2024 Toenail fungus 09/11/2022 Well adult exam 01/15/2021 Overview: 08/22 colon WNL osbaldo 5y? Pap & HPV WNL 2019-osbaldo 5y Colon 08/20 fair prep osbaldo 1y Pap ok 5y. Daughters twin Nola (depression), Marina, older son, -Carroll Family history of malignant melanoma 12/03/2013 documented as of this encounter (statuses as of 04/27/2024) Resolved Problems Problem Noted Date Diagnosed Date Resolved Date Ingrowing nail 09/26/2022 04/19/2024 Subungual hematoma of great toe 09/11/2022 04/19/2024 At risk of melanoma due to f inding dysplastic nevus 12/08/2014 09/22/2017 documented as of this encounter (statuses as of 04/27/2024) Immunizations Name Administration Dates Next Due COVID-19 mRNA, LNP-s, No Pre serve, 2-Dose Series ([employer]) 12/15/2020,11/24/2020 Seasonal Influenza Virus Vac cine, Unspecified Formulation 05/23/2019 TDAP (age 10 and older)(Boostrix) 09/07/2020 TDAP, Age 7 and older, IM (Adacel) 01/07/2008 Zoster Vaccine Recombinant (Shingrix) 01/15/2021 ,09/07/2020 documented as of this encounter Social History Tobacco Use Types Packs/Day Years Used Date Smoking Tobacco: Former Cigarettes Q uit: 09/01/2000 Smokeless Tobacco: Never Alcohol Use Standard Drinks/Week Comments Not Currently 0 (1 standard drink = 0.6 oz pure alcohol) socally 1-2 wine over 1-2 weeks. 04/24 ER intox @[facility]. stopped ETOH after. PHQ-2 Answer Date Recorded PHQ Adult Total Score 1 09/07/2020 Hunger Vital Sign Answer Date Recorded Within the past 12 months, y ou worried that your food would run out before you got the money to buy more. Never true 09/07/19 21 Within the past 12 months, t he food you bought just didn't last and you didn't have money to get more. Never true 09/07/2020 Utilities Answer Date Recorded Do you have trouble paying y our heating, water, or electric bill? (Adult - for ages 18 years and over) Not on file 02/17/2024 Is your family able to pay t he heat, water, or electric bill? (Household - for ages 0-17 years) Not on file 02/17/2024 Does your family have access to good internet? (Household - for ages 0-17 years) Not on file 02/17/2024 Social Connections Answer Date Recorded How often do you feel lonely or isolated from those around you? (Adult - for ages 18 years and over) Not on file 02/17/2024 Sex and Gender Information Value Date Recorded Sex Assigned at Female 11/21/2023 8:28 AM EDT Gender Identity Female 11/21/2023 8:28 AM EDT Sexual Orientation Straight 11/21/2023 8: 28 AM EDT Job Start Date Occupation Industry Not on file Not on file Not on file documented as of this encounter Miscellaneous Notes * Telephone Encounter - Kathy Juan LPN - 04/27/2024 9:12 AM EDT MyG sent to patient. * Telephone Encounter - Barry Zhou MD - 04/26/2024 10:07 PM EDT Call pt. Labs show her iron was likely low (she had a low ferritin level) Would take iron 325mg 1 pill every OTHER day, if not too constipating. Rx sent. Osbaldo labs 3mos. Orders signed-please send to her. documented in this encounter Plan of Treatment Upcoming Encounters Date Type Department Care Team (Late st Contact Info) Description 05/10/2024 11:30 AM EDT Office Visit Cardiology, [facility] [address] [place] [id number] Adam De Anda PA-C [address] [place] [id number] 07/19/2024 7:45 AM EST Imaging Radiology [facility], [address] [place] [address] Scheduled Orders Name Type Priority Associated Diagnoses Orde r Schedule CBC WITH WBC DIFFERENTIAL Lab Routine Iron deficiency Expected: 07/27/2024 (Approximate), Expires: 04/26/2025 IRON SCREEN, INCLUDING TIBC Lab Routine Iron deficiency Expected: 07/27/2024 (Approximate), Expires: 04/26/2025 FERRITIN Lab Routine Iron deficiency Expected: 07/27/2024 (Approximate), Expires: 04/26/2025 Scheduled Procedures Name Priority Associated Diagnoses Date/Ti me COLONOSCOPY FLEXIBLE PROXIMA L DIAGNOSTIC Recall History of colonic polyps Health Maintenance Due Date Last Done Comments Cologuard 2015 Fecal Occult Blood Test 2015 Sigmoidoscopy 2015 Depression Screening 09/07/2021 09/07/2020 Diabetes Screening 09/14/2023 09/14/2020, 1 , 06/30/2017, Additional history exists Influenza Vaccine (FLU shot) (#1) 2024 05/23/2019 Mammogram 07/17/2024 07/17/2023, 05/0 05/2023, 07/05/2022, Additional history exists Lipid Panel 09/14/2025 09/14/2020, 06/02, 06/30/2017, Additional history exists Colonoscopy 08/01/2027 08/01/2022, 12/09/2021, 08/30/2020, Additional history exists Colorectal Cancer Screening 08/01/2027 PAP SMEAR-EVERY 5 YRS,AGES 21-100 07/18/2028 07/18/2023, 06/20/2020, 06/06/2017, Additional history exists DTap/Tdap Vaccines (3 - Td or Tdap) 09/07/2030 09/07/2020, 01/07/2008 COVID-19 Vaccine Discontinued 12/15/2020, 11/24/2020 Zoster Vaccines Completed 01/15/2021, 09/07/2020 RETIRED - COLONOSCOPY-EVERY 5 YRS AGES 18-100 Discontinued 08/01/2022, 08/01/2022, 08/30/2020, Additional history exists Pap Smear Discontinued 07/18/2023, 06/02, 06/06/2017, Additional history exists HPV (Gardasil) Vaccine Aged Out No lo nger eligible based on patient's age to complete this topic Hepatitis B Vaccine Discontinued Hepatitis C Screening Discontinued MENINGOCOCCAL (MENACTRA/MENVEO) Aged Out No longer eligible based on patient's age to complete this topic Pneumococcal Vaccine: Pediatrics (0 to 5 Years) and At-Risk Patients (6 to 64 Years) Aged Out No longer eligible based on patient's age to complete this topic documented as of this encounter Medical Devices Not on filedocumented as of this encounter Visit Diagnoses Diagnosis Iron deficiency- Primary Iron deficiency anemia, unspecified documented in this encounter Care Teams Cupola Mechanic Relationship Specialty Start Date End Date Barry Zhou MD [address] [place] [id number] PCP - General Family Medicine 01/15/21 documented as of this encounter
--- OUTSIDE RECORDS SUMMARY | 2024-06-18 23:10 | External Medical Summary | Summary of Care ---
Author Name Unknown Organization [facility] Address [address] [place] [address] Phone [phone] Care Team Providers Care Practice Management Consultant Name Role Phone Barry Zhou MD Primary Care Provider + Reason for Visit * Reason Comments NEW PATIENT New sleep. Suspected sleep apnea. Insomnia. Wakes up multiple times during the night. * Evaluate & Treat - Unlimited Visits (Within 10 days (routine)) - Authorized Specialty Diagnoses / Procedures Referred By Diaz t Referred To Contact Sleep Medicine / Sleep Disorders Diagnoses Suspected sleep apnea PAF (paroxysmal atrial fibrillation) (HCC) Adam De Anda PA-C [address] [employer] [place] [address] Referral ID Status Reason Start Date Expiration Date Visits Requested Visits Authorized [id number] Authorized Specialty Services Required 05/10/2024 2 2 Encounter Details Date Type Department Care Team (Late st Contact Info) Description 05/18/2024 8:40 AM EDT Office Visit Sleep Disorders [facility] [address] [place] [phone] Lupe Evangelista DO [address] [employer] [place] [phone] Sleep apnea, unspecified type*; Insomnia, unspecified type; Fatigue, unspecified type; Paroxysmal atrial fibrillation (HCC); Restless legs syndrome (RLS) Allergies No known active allergiesdocumented as of this encounter (statuses as of 05/18/2024) Medications Medication Sig Dispensed Refills Start Date [...] other day 45 Tablet 1 04/26/2024 Active Magnesium 400 MG Oral Tablet Take 1 Tablet by mouth every morning. Active D3-1000 25 MCG (1000 UT) Oral Capsule (Cholecalciferol) Take 1 Capsule by mouth in the morning. Active Collagen Ultra Oral Capsule Take by mouth. Collagen with sea lovett liquid drops. 1 drop under the tongue daily. 05/18/2024 Discontinued (Medication List Clean Up) documented as of this encounter (statuses as of 05/18/2024) Active Problems Problem Noted Date Diagnosed Date [...] as of this encounter (statuses as of 05/18/2024) Resolved Problems Problem Noted Date Diagnosed Date Resolved Date Ingrowing nail 09/26/2022 04/19/2024 Subungual hematoma of great toe 09/11/2022 04/19/2024 At risk of melanoma due to f inding dysplastic nevus 12/08/2014 09/22/2017 documented as of this encounter (statuses as of 05/18/2024) Immunizations Name Administration Dates Next Due COVID-19 mRNA, LNP-s, No Pre serve, 2-Dose Series (CX) 12/15/2020,11/24/2020 Seasonal Influenza Virus Vac cine, Unspecified [...] wine over 1-2 weeks. 04/24 ER intox @[place]. stopped ETOH after. PHQ-2 Answer Date Recorded [...] on file documented as of this encounter Last Filed Vital Signs Vital Sign Reading Time Taken Comments Blood Pressure 108/66 05/18/2024 8:12 AM EDT Pulse 67 05/18/2024 8:12 AM EDT Temperature 36.1 C (96.9 F) 05/18/2024 8:12 AM ED T Respiratory Rate 16 05/18/2024 8:12 AM EDT Oxygen Saturation 98% 05/18/2024 8:12 AM EDT Inhaled Oxygen Concentration - - Weight 102.1 kg (225 lb) 05/18/2024 8:12 AM EDT Height 175.3 cm (5' 9") 05/18/2024 8:12 AM EDT Body Mass Index 33.23 05/18/2024 8:12 AM EDT documented in this encounter Patient Instructions * Patient Instructions* Lupe Evangelista DO - 05/18/2024 9:15 AM EDT SLEEP APNEA We are concerned that you may have sleep apnea. Sleep apnea is when someone has difficulties with breathing only during sleep. This typically happens without the patient being aware they are having breathing issues. Obstructive sleep apnea is very common. It can be seen in kids and adults. It can cause symptoms of excessive daytime sleepiness, fatigue, morning headaches, and poor memory and cognition. It can also lead to difficulties at work or school and motor vehicle accidents. If left untreated, it puts people at risk for heart attacks, strokes, and diabetes. We diagnose sleep apnea with either an in-lab sleep study or a home sleep apnea test. More information can be obtained at: SleepEducation.org Treatment of restless legs syndrome / periodic limb movements of sleep: Avoid things that make it worse. These may include: certain medicines (such as diphenhydramine, many antidepressants), sleep deprivation, caffeine, alcohol, and nicotine. Daytime activities: regular moderate-intensity exercise, evening leg stretching or gentle leg exercises. Relief of symptoms: walking, bicycling, warm or cool compresses, massage of legs. If iron/ferritin levels are below a certain level, an iron supplement may be recommended. Iron is better absorbed when taken along with vitamin C. Prescription medications may be considered for moderate or severe symptoms in addition to the abovetreatments. documented in this encounter Progress Notes * Lupe Evangelista DO - 05/18/2024 8:46 AM EDT Sleep Medicine Evaluation [facility] [address] [facility] [place] [address] Consultation was requested by: Adam De Anda PA-C for: suspected sleep apnea, paroxysmal atrial fibrillation and a copy of this report is being sent to the provider electronically. Relevant available records reviewed. HPI: Mell Larios is a(n) 53 year old female presenting for evaluation of suspected sleep apnea. She has been having trouble sleeping for 1-1.5 years. Sleep seems erratic, and she is very tired. Patient reports a typical bedtime of 9 pm. It takes about 30 minutes to fall asleep. Patient awakens at 2-3:30 AM to go to the bathroom and has trouble returning to sleep. Wakes up to urinate. Awakens 1-2 times overnight. Patient awakens for the day at 4-5:30 AM (depending on whether she can get back to sleep), feeling still tired. Patient does feel tired during the day. Her eyes get tired. Patient does occasionally take naps. Sometimes on weekends (she was not historically a dedrick). Patient does not have caffeine, none since April 05 (previously had 2 cups coffee in the morning). The patient reports having ("+" indicates reports, "-" indicates denies): occasional Snoring, if very tired More often family notes that she puffs out breath. - Observed apneas - Choking/gasping awakenings + Mouth breathing - Acid reflux at night + Nocturia occasional Morning headaches + hx Teeth grinding, had a bite guard temporarily but no longer using. Restless Legs Syndrome Symptoms ("+" indicates reports, "-" indicates denies): + Pain/discomfort in legs at night + Urge to move legs at night + Better with movement + Disrupts sleep When she first lays down, tossing and turning before getting to sleep. Near-nightly, for about the past year and a half. Typically just during initial sleep latency. Ferritin 13 on 04/19/24. Taking iron supplement now. She notes she donates blood frequently. Parasomnias Symptoms ("+" indicates reports, "-" indicates denies): - Sleepwalking - Dream-enactment Excessive Daytime Sleepiness: [place] Sleepiness Scale 6 Modified F.O.S.Q. 32 - Drowsy driving [place] Sleepiness Scale Question 05/17/2024 2:47 PM EDT - Filed by Patient What is the chance you will doze off in the following situation? Sitting and reading Slight chance of dozing Watching TV Moderate chance of dozing Sitting inactive in a public place, such as a theater or meeting No chance of dozing As a passenger in a car for an hour without a break No chance of dozing Lying down to rest in the afternoon when circumstances permit Moderate chance of dozing When sitting and talking to someone No chance of dozing When sitting quietly after lunch without alcohol Slight chance of dozing In a car, while stopped for a few minutes in traffic No chance of dozing Score (range: 0 - 24) 6 Functional Outcomes Of Sleep Question 05/17/2024 2:48 PM EDT - Filed by Patient Please complete the following questions. Do you have difficulty concentrating because you are sleepy or tired? Yes, moderate Do you have difficulty remembering things because you are sleepy or tired? Yes, moderate Do you have difficulty operating a motor vehicle for short distances (less than 100 miles) because you become sleepy? No Do you have difficulty operating a motor vehicle for long distances (more than 100 miles) because you become sleepy? No Do you have difficulty visiting family or friends in their home because you become sleepy or tired?No Has your relationship with family, friends, or work colleagues been affected because you are sleepyor tired? No Do you have difficulty watching a movie or video because you become sleepy or tired? Yes, a little Do you have difficulty being as active as you want to be in the evening because you are tired or sleepy? Yes, a little Do you have difficulty being as active as you want to be in the morning because you are tired or sleepy? Yes, a little Has your mood been affected because you are sleepy or tired? Yes, a little Score (range: 10 - 40) 32 Flu Vaccine Questionnaire Question 05/17/2024 2:48 PM EDT - Filed by Patient Get your flu shot at your upcoming appointment. Please select one of the options below. I don't want the flu shot Travel Screening Question 05/18/2024 8:03 AM EDT - Filed by Patient Do you have any of the following new or worsening symptoms? None of these Have you recently been in contact with someone who was sick? No / Unsure Sleep hygiene: Bedroom dark? yes Noise? quiet Watch TV in bed? no Clockwatching? Not typically Prior sleep study: none PMH: Past Medical History: Diagnosis Date Blood type A+ dysplastic nevus- back 10/04 Paroxysmal atrial fibrillation (HCC) 04/19/2024 Iron deficiency TMJ Past Surgical History: Procedure Laterality Date DELIVERY 02/04/1995 [facility] DELIVERY 02/25/2002 [facility] COLONOSCOPY, DIAGNOSTIC (RECTUM) 08/30/2020 hyperplastic polyp, fair prep, diverticulosis, repeat 1 yr / COLONOSCOPY FLEXIBLE PROXIMAL DIAGNOSTIC performed by Forrest Mora MD at [facility] COLONOSCOPY, DIAGNOSTIC (RECTUM) 08/01/2022 diverticulosis/recall 5 years/COLONOSCOPY FLEXIBLE PROXIMAL DIAGNOSTIC performed by Forrest Mora MD at [facility] TREAT ECTOPIC , TUBE/OVARY 08/01/1999 Ectopic Preg,Non Remval TREAT ECTOPIC , TUBE/OVARY 09/01/1999 Ectopic Preg,Non Remval TREAT ECTOPIC , TUBE/OVARY 09/01/1999 Ectopic Preg,Non Remval TREAT ECTOPIC , TUBE/OVARY 09/01/2000 Ectopic Preg,Non Remval TREAT ECTOPIC , TUBE/OVARY 09/01/2000 Ectopic Preg,[facility] Tube/Ovary Tonsillectomy at 20-21 yo ALLERGIES: Review of patient's allergies indicates: No Known Allergies MEDS: Current Outpatient Medications Medication Sig Dispense Refill D3-1000 25 MCG (1000 UT) Oral Capsule (Cholecalciferol) Take 1 Capsule by mouth in the morning. Magnesium 400 MG Oral Tablet Take 1 Tablet by mouth every morning. Ferrous Sulfate 325 (65 Fe) MG Oral Tablet (Feosol) 1 tab by mouth every other day 45 Tablet 1 Metoprolol Succinate ER 25 MG Oral Tablet Extended Release 24 Hour (toPROL XL) Take 1 Tablet by mouth in the morning. Multiple Vitamins-Minerals (MULTIVITAMIN ADULT) TABS Take by mouth. IBUPROFEN 200 MG PO CAPS as needed No current facility-administered medications for this visit. FHx: no known family history of sleep disordered breathing or RLS Social hx: Tobacco use: none Alcohol use: in moderation Drug use: none Employment: community relations for [employer]: VITAL SIGNS: Filed Vitals: 05/18/24 0812 BP: 108/66 Pulse: 67 Resp: 16 Temp: 36.1 C (96.9 F) TempSrc: Tympanic SpO2: 98% Weight: 102.1 kg (225 lb) Height: 1.753 m (5' 9") Body mass index is 33.23 kg/m. GEN: Ambulatory, obese, NAD ORAL: Tongue scalloping Hard palate narrow Oral mucous membranes moist OP: No thrush or lesions Uvula normal Soft palate normal Mallampati III Tonsils 0 NECK: Circumference 13" RESP: Unlabored respirations Breath sounds clear, no wheezes or rales CVS: Regular rate and rhythm EXT: No edema NEURO: Speech clear and appropriate IMPRESSION/RECOMMENDATIONS: Insomnia, fatigue, occasional snoring, atrial fibrillation - STOP-BANG 2 (tired and age > 50) - Discussed the pathophysiology, implications on short- and long-term health, diagnostic evaluation, and likely treatment options of ALEXANDRA - Schedule a WatchPAT home sleep apnea test to evaluate for ALEXANDRA. Discussed that if the HSAT does not show ALEXANDRA, we will likely recommend in-lab PSG. (Note that if her insomnia & fatigue resolve inthe interim with iron repletion, she should update me.) - Avoid driving when sleepy/drowsy. Please verify the following with the patient before ordering WatchPAT study: Does patient have Wifi? Yes Does patient have smart phone? Yes Do they have acrylic nails or nail tajik? No: Do they have a pacemaker? No Are they on alphablockers? Please list which med is the alphablocker: no Takes metoprolol in the morning What is the phone number of the cell phone they will be using? [phone] RLS - agree with iron supplement as per PCP - discussed other things that can impact RLS (see AVS) - if sleep apnea is seen, will see if RLS improves with tx of sleep apnea - if proceeding with PSG, will see PLMI & PLMAI Follow-up: Return will send MyG with WatchPAT results. | Check-out note: WatchPAT Geeta Evangelista DO documented in this encounter Nursing Notes * Zandra Torres LPN - 05/18/2024 8:15 AM EDT Chief Complaint Patient presents with NEW PATIENT New sleep. Suspected sleep apnea. Insomnia. Wakes up multiple times during the night. Neck: 13". [place] Sleepiness Scale Question 05/17/2024 2:47 PM EDT - Filed by Patient What is the chance you will doze off in the following situation? Sitting and reading Slight chance of dozing Watching TV Moderate chance of dozing Sitting inactive in a public place, such as a theater or meeting No chance of dozing As a passenger in a car for an hour without a break No chance of dozing Lying down to rest in the afternoon when circumstances permit Moderate chance of dozing When sitting and talking to someone No chance of dozing When sitting quietly after lunch without alcohol Slight chance of dozing In a car, while stopped for a few minutes in traffic No chance of dozing Score (range: 0 - 24) 6 Functional Outcomes Of Sleep Question 05/17/2024 2:48 PM EDT - Filed by Patient Please complete the following questions. Do you have difficulty concentrating because you are sleepy or tired? Yes, moderate Do you have difficulty remembering things because you are sleepy or tired? Yes, moderate Do you have difficulty operating a motor vehicle for short distances (less than 100 miles) because you become sleepy? No Do you have difficulty operating a motor vehicle for long distances (more than 100 miles) because you become sleepy? No Do you have difficulty visiting family or friends in their home because you become sleepy or tired?No Has your relationship with family, friends, or work colleagues been affected because you are sleepyor tired? No Do you have difficulty watching a movie or video because you become sleepy or tired? Yes, a little Do you have difficulty being as active as you want to be in the evening because you are tired or sleepy? Yes, a little Do you have difficulty being as active as you want to be in the morning because you are tired or sleepy? Yes, a little Has your mood been affected because you are sleepy or tired? Yes, a little Score (range: 10 - 40) 32 Flu Vaccine Questionnaire Question 05/17/2024 2:48 PM EDT - Filed by Patient Get your flu shot at your upcoming appointment. Please select one of the options below. I don't want the flu shot Travel Screening Question 05/18/2024 8:03 AM EDT - Filed by Patient Do you have any of the following new or worsening symptoms? None of these Have you recently been in contact with someone who was sick? No / Unsure documented in this encounter Plan of Treatment Upcoming Encounters Date Type Department Care Team (Late st Contact Info) Description 07/15/2024 1:30 PM EST Imaging Cardiac Studies, [facility] [address] [facility] [place] [address] 07/19/2024 7:45 AM EST Imaging Radiology [facility] 1st Floor, [place] [address] [place] [address] 08/23/2024 10:00 AM EST [facility] [place] [address] [facility] [place] [address] [facility] [address] [place] [address] 09/09/2024 8:00 AM EST Office Visit Cardiology, [facility] [address] [facility] [place] [address] Adam De Anda PA-C [address] [place] [phone] Scheduled Orders Name Type Priority Associated Diagnoses Orde r Schedule TIMED SLEEP STUDY, UNATTEND, HR/O2 SAT/RESP Procedures Routine Sleep apnea, unspecified type Insomnia, unspecified type Fatigue, unspecified type Paroxysmal atrial fibrillation (HCC) Restless legs syndrome (RLS) Ordered: 05/18/2024 Scheduled Procedures Name Priority Associated Diagnoses Date/Ti me COLONOSCOPY FLEXIBLE PROXIMA L DIAGNOSTIC Recall History of colonic polyps Health Maintenance Due Date Last Done Comments Cologuard 2015 Fecal Occult Blood Test 2015 Sigmoidoscopy 2015 Depression Screening 09/07/2021 09/07/2020 Diabetes Screening 09/14/2023 09/14/2020, 1 , 06/30/2017, Additional history exists Influenza Vaccine (FLU shot) (#1) 2024 05/23/2019 Mammogram 07/17/2024 07/17/2023, 05/2023, 07/05/2022, Additional history exists Lipid Panel 09/14/2025 09/14/2020, 06/02, 06/30/2017, Additional history exists Colonoscopy 08/01/2027 08/01/2022, 09/2021, 08/30/2020, Additional history exists Colorectal Cancer Screening [...] as of this encounter Visit Diagnoses Diagnosis Sleep apnea, unspecified type- Primary Insomnia, unspecified type Fatigue, unspecified type Paroxysmal atrial fibrillation (HCC) Atrial fibrillation Restless legs syndrome (RLS) documented in this encounter Care Teams Practice Management Consultant Relationship Specialty Start Date End Date Barry Zhou MD [address] [place] [address] PCP - General Family Medicine 01/15/21 documented as of this encounter
--- OUTSIDE RECORDS SUMMARY | 2024-06-18 23:10 | External Medical Summary | Summary of Care ---
Author Name Unknown Organization [facility] Address [address] [place] [address] Phone [phone] Care Team Providers Care Hold Worker Name Role Phone Barry Zhou MD Primary Care Provider + Reason for Referral * Precert (Diagnostic Medical) (Within 10 days (routine)) - Pending Review Specialty Diagnoses / Procedures Referred By Contac t Referred To Contact Cardiac Studies Diagnoses PAF (paroxysmal atrial fibrillation) (HCC) SVT (supraventricular tachycardia) (HCC) GARZA (dyspnea on exertion) Procedures ECHO, STRESS (EXERCISE) W/ PHYSICIAN Adam De Anda PA-C [address] [place] [address] Referral ID Status Reason Start Date Expiration Date Visits Requested Visits Authorized [id number] Pending Review Precert 05/17/[phone] * Evaluate & Treat - Unlimited Visits (Within 10 days (routine)) - Authorized Specialty Diagnoses / Procedures Referred By Contac t Referred To Contact Sleep Medicine / Sleep Disorders Diagnoses Suspected sleep apnea PAF (paroxysmal atrial fibrillation) (HCC) Adam De Anda PA-C [address] [place] [address] Referral ID Status Reason Start Date Expiration Date Visits Requested Visits Authorized [id number] Authorized Specialty Services Required 05/10/2024 2 2 Question Answer GS CAD SLEEP MED ADULT REFERRAL Sleep Apnea Testing and Management Does the patient snore and/or gasp at night or has been told they stop breathing at night? Yes, document patient's symptoms in progress note Referral Priority Within 10 days (routine) Where should this appointment be scheduled? [facility] Reason for Visit * Reason Comments NEW PATIENT [facility] ED 04/07/24. Star danielle on metoprolol. Echo 04/22/24. 14 day Zio on 04/08/24. Tired. SOB with minor exertion. Denies palpitations, chest pain, edema and dizziness. Encounter Details Date Type Department Care Team (Late st Contact Info) Description 05/10/2024 11:30 AM EDT Office Visit Cardiology, [facility] [address] [place] [id number] Adam De Anda PA-C [address] [place] [phone] Suspected sleep apnea*; PAF (paroxysmal atrial fibrillation) ([facility]); SVT (supraventricular tachycardia) ([facility]); GARZA (dyspnea on exertion) Allergies No known active allergiesdocumented as of this encounter (statuses as of 05/11/2024) Medications Medication Sig Dispensed Refills Start Date [...] other day 45 Tablet 1 04/26/2024 Active Collagen Ultra Oral Capsule Take by mouth. Collagen with sea lovett liquid drops. 1 drop under the tongue daily. Active Magnesium 400 MG Oral Tablet Take 1 Tablet by mouth every morning. Active D3-1000 25 MCG (1000 UT) Oral Capsule (Cholecalciferol) Take 1 Capsule by mouth in the morning. Active documented as of this encounter (statuses as of 05/11/2024) Active Problems Problem Noted Date Diagnosed Date Iron deficiency 04/26/2024 Paroxysmal atrial fibrillation 04/19/2024 Toenail fungus 09/11/2022 Well adult exam 01/15/2021 Overview: 08/22 colon WNL osbaldo 5y? Pap & HPV WNL 2020-osbaldo 5y Colon 08/20 fair prep osbaldo 1y Pap ok 5y. Daughters twin Nola (depression), Marina, older son, -Carroll Family history of malignant melanoma 12/03/2013 documented as of this encounter (statuses as of 05/11/2024) Resolved Problems Problem Noted Date Diagnosed Date Resolved Date Ingrowing nail 09/26/2022 04/19/2024 Subungual hematoma of great toe 09/11/2022 04/19/2024 At risk of melanoma due to f inding dysplastic nevus 12/08/2014 09/22/2017 documented as of this encounter (statuses as of 05/11/2024) Immunizations Name Administration Dates Next Due COVID-19 mRNA, LNP-s, No Pre serve, 2-Dose Series (Fundrise) 12/15/2020,11/24/2020 Seasonal Influenza Virus Vac cine, Unspecified [...] wine over 1-2 weeks. 04/24 ER intox @[place]. stopped ETOH after. PHQ-2 Answer Date Recorded [...] Sign Reading Time Taken Comments Blood Pressure 114/72 05/10/2024 11:32 AM EDT Pulse 68 05/10/2024 11:32 AM EDT Temperature - - Respiratory Rate 16 05/10/2024 11:32 AM EDT Oxygen Saturation - - Inhaled Oxygen Concentration - - Weight 101 kg (222 lb 12 oz) 05/10/2024 11:32 AM EDT Height - - Body Mass Index 32.88 04/19/2024 8:58 AM EDT documented in this encounter Progress Notes * Adam De Anda PA-C - 05/10/2024 11:53 AM EDT History of Present Illness: Mell Larios is a very pleasant 53-year-old female who presents todayfor ER follow-up. Recent history notable for traveling to the [place] area for a work conference. In the evening of April 05, 2024 patient drank wine. She was found at a hotel unconscious and was transported to [facility] in [place] via ambulance with altered mental status, alcohol intoxication per documentation. Ethanol: 253. Potassium was low at 3.2 mmol/L and corrected in the ER The patient was transported back to her hotel after hydration and about 6 hours of observation. Patient presented to the [facility] ER on April 05, 2024 as a walk-in due to feeling unwell. Workup benign. On April 07, 2024 she returned to the [facility] ER with symptoms of dizziness, lightheadedness, tachypalpitations, near syncope, and shortness of breath. She initially thought that she was having a panic attack. Initial EKG revealed a narrow complex tachycardia at 150 bpm suggestive of SVT versus atypical atrial flutter. After receiving a dose of IV diltiazem repeat EKG revealed atrial fibrillation with a ventricular rate of 114 bpm. After a 2nd dose of IV diltiazem and a dose of IV lorazepam the patient converted to sinus rhythm in the 70s with a first-degree AV block with improvement in symptoms. Patient evaluated by Dr. Bennett. [id number] Score 1 point for female sex. Recommendations include initiation of metoprolol succinate 25 mg per day and proceeding without anticoagulation given her low risk status. Following discharge from the ER the patient underwent ambulatory EKG monitoringas well as resting echocardiography which are summarized below. Patient presents today, accompanied by Carroll, for further evaluation and treatment. She hasnot had overt episodes of atrial fibrillation. She is concern regarding feeling winded with minimalactivity. She would like to get back to cycling when determined to be safe. No chest discomfort. Nofluid retention. No syncope. Patient Active Problem List Diagnosis Family history of malignant melanoma Well adult exam Toenail fungus Paroxysmal atrial fibrillation (HCC) Iron deficiency Past Medical History: Diagnosis Date Blood type A+ dysplastic nevus- back 10/04 Paroxysmal atrial fibrillation (HCC) 04/19/2024 Past Surgical History: Procedure Laterality Date DELIVERY 02/04/1995 [facility] DELIVERY 02/25/2002 [facility] COLONOSCOPY, DIAGNOSTIC (RECTUM) 08/30/2020 hyperplastic polyp, fair prep, diverticulosis, repeat 1 yr / COLONOSCOPY FLEXIBLE PROXIMAL DIAGNOSTIC performed by Forrest Mora MD at ENDOSCOPY [facility] COLONOSCOPY, DIAGNOSTIC (RECTUM) 08/01/2022 diverticulosis/recall 5 years/COLONOSCOPY FLEXIBLE PROXIMAL DIAGNOSTIC performed by Forrest Mora MD at ENDOSCOPY [facility] TREAT ECTOPIC , TUBE/OVARY 08/01/1999 Ectopic Preg,Non Remval TREAT ECTOPIC , TUBE/OVARY 09/01/1999 Ectopic Preg,Non Remval TREAT ECTOPIC , TUBE/OVARY 09/01/1999 Ectopic Preg,Non Remval TREAT ECTOPIC , TUBE/OVARY 09/01/2000 Ectopic Preg,Non Remval TREAT ECTOPIC , TUBE/OVARY 09/01/2000 Ectopic Preg,[facility] Tube/Ovary Family History: Mother: with renal cancer at age 58. Father: Metastatic melanoma, passing in his 50's. Three brothers without cardiac issues. Maternal grandmother with stomach cancer. Social History: Nonsmoker. Typically very limited alcohol intake. No illegal drug use. to Carroll x 30 years. Three children, a 29 year old son and twin girls age 22. Employment: [employer] Complete Review of Systems is as stated above, negative, or noncontributory. Review of patient's allergies indicates: No Known Allergies Current Outpatient Medications Medication Sig Dispense Refill Multiple Vitamins-Minerals (MULTIVITAMIN ADULT) TABS Take by mouth. Metoprolol Succinate ER 25 MG Oral Tablet Extended Release 24 Hour (toPROL XL) Take 1 Tablet by mouth in the morning. Ferrous Sulfate 325 (65 Fe) MG Oral Tablet (Feosol) 1 tab by mouth every other day 45 Tablet 1 Collagen Ultra Oral Capsule Take by mouth. Collagen with sea lovett liquid drops. 1 drop under the tongue daily. Magnesium 400 MG Oral Tablet Take 1 Tablet by mouth every morning. D3-1000 25 MCG (1000 UT) Oral Capsule (Cholecalciferol) Take 1 Capsule by mouth in the morning. IBUPROFEN 200 MG PO CAPS as needed No current facility-administered medications for this visit. OBJECTIVE/PHYSICAL EXAMINATION: BP 114/72 | Pulse 68 | Resp 16 | Wt 101 kg (222 lb 12 oz) | LMP 04/01/2018 | BMI 32.88 kg/m | BSA2.22 m General: Alert and oriented x3. No acute distress. Pleasant. Comfortable. Cooperative. Eyes: PER. Conjunctiva pink, sclera clear. HENT: Normocephalic. Atraumatic. Neck: No carotid bruits. No JVD. No HJR. Heart: RRR. No murmur. No rub. No gallop. PMI is nondisplaced. Lungs: Clear to auscultation. No wheeze. No rales. No rhonchi Abdomen: +BS. Soft. Nontender. No masses. No organomegaly. Extremities: No clubbing, cyanosis, or edema. Pulses: Posterior tibial=1-2/4. Limited neurological examination: No focal deficit. Data: April 2024 Zio Monitor: Patient had a min HR of 47 bpm, max HR of 188 bpm, and avg HR of 68 bpm. Predominant underlying rhythm was Sinus Rhythm. First Degree AV Block was present. Slight P wave morphology changes were noted. 28 Supraventricular Tachycardia runs occurred, the run with the fastest interval lasting 11 beats with a max rate of 188 bpm, the longest lasting 17.5 secs with an avg rate of 132 bpm. Some episodes of Supraventricular Tachycardia may be possible Atrial Tachycardia with variable block. Isolated SVEs were rare (<1.0%), SVE Couplets were rare (<1.0%), and SVE Triplets were rare (<1.0%). Isolated VEs were rare (<1.0%, 87), VE Couplets were rare (<1.0%, 5), and VE Triplets were rare (<1.0%, 1). The patient recorded 2 event markers and 2 diary entries which correlated with sinus rhythm and sinus rhythm with atrial ectopic beats. Impression: Sinus rhythm, average rate 68 beats per minute with 28 runs of supraventricular tachycardia. Distinct atrial fibrillation or flutter not noted. Longest episode 17.5 seconds in duration Aprsu2023 TTE Interpretation Summary (as per Dr. Ivan): The left ventricular cavity size is normal. The LV wall thickness is borderline increased (concentric). The left ventricular wall motionis normal. The qualitative LV ejection fraction is 55-59% (normal). The left ventricular diastolic function is normal. The left atrium is normal sized. The mitral valve leaflets are very mildly thickened with trace mitral insufficiency. There is no other valvular disease ASSESSMENT: Episode of symptomatic paroxysmal atrial fibrillation on 04/07/2024, suspected alcohol as an acute trigger, holiday heart [id number] Score 1 point Asymptomatic supraventricular tachycardia via April 2024 Zio monitoring Dyspnea with minimal exertion Suspected underlying sleep a pnea RECOMMENDATIONS/PLAN: Options of management discussed with patient and who was present for the entire visit. We discussed pathophysiology and management options, rate versus rhythm control, beta-karina versus calcium channel karina therapy (Cardizem), antiarrhythmic therapy, and electrophy siology evaluation including ablation. Continue metoprolol succinate 25 mg/day Continue without anticoagulation. Refer for exercise stress echocardiography Refer to Sleep Medicine, evaluation and treatment of suspected sleep apnea Avoid alcohol, decongestants, and stimulants Hold off on initiation of a structured exercise program pending stress testing results. Patient advised to write/call with any questions, concerns, comments, etc. Cardiac follow-up with the above, in 3-4 months, or as needed. ER with emergencies. Adam De Anda PA-C Department of Cardiology I spent a total of 40-54 minutes (exact time 45 mins) on the date of service in preparation, delivery, and documentation of the care provided to Mell Larios excluding any time spent in the performance of separately billed services. This visit involved medical care services related to at least one serious condition or complex condition requiring ongoing care. This chart was completed in part utilizing [employer] Speech Voice Recognition Software. Grammatical errors, random word insertions, prounoun errors, and incomplete sentences are an occasional consequence of this system due to software limitations, ambient noise, and hardware issues. Any formal questions or concerns about the content, text, or information contained within the body of this dictation should be directly addressed to the provider for clarification. documented in this encounter Nursing Notes * Sidney Willson LPN - 05/10/2024 11:32 AM EDT Patient identified by full name and date of Chief Complaint Patient presents with NEW PATIENT [facility] ED 04/07/24. Started on metoprolol. Echo 04/22/24. 14 day Zio on 04/08/24. Tired. SOB with minor exertion. Denies palpitations, chest pain, edema and dizziness. Examination Room: 3 Name: Mell Larios Date of : (1970). Reason for Visit: New Patient Interim Hospitalization(s): [facility] ED 04/07/24. [place] ED 04/05/24 Problems/Concerns: See chief complaint Chest Pain/SOB: See chief complaint [facility] Discussed: Not applicable [facility] is a way you can talk to your provider online through e-mail. Would you like to sign up? I can activate it for you? ALREADY ACTIVE Patient was instructed to not get up on the exam table until directed and assisted by their provider; patient is to remain seated in the chair/ wheelchair/ exam table for fall prevention and safety reasons. Patient is aware to have assistance to step down off exam table with personnel. Patient voiced full comprehension of instructions. documented in this encounter Plan of Treatment Upcoming Encounters Date Type Department Care Team (Late st Contact Info) Description 05/18/2024 8:40 AM EDT Office Visit [facility] Disorders [facility] [address] [place] [phone] Lupe Evangelista DO [address] [place] [phone] 07/15/2024 1:30 PM EST Imaging Cardiac Studies, [facility] [address] [facility] [place] [address] 07/19/2024 7:45 AM EST Imaging Radiology [facility] 1st Floor, [place] [address] [place] [address] 09/09/2024 8:00 AM EST Office Visit Cardiology, [facility] [address] [facility] [place] [address] Adam De Anda PA-C [address] [place] [address] Scheduled Orders Name Type Priority Associated Diagnoses Orde r Schedule ECHO, STRESS (EXERCISE) W/ PHYSICIAN Echocardiology Routine PAF (paroxysmal atrial fibrillation) (HCC) SVT (supraventricular tachycardia) (HCC) GARZA (dyspnea on exertion) Expected: 05/17/2024, Expires: 06/09/2025 Scheduled Procedures Name Priority Associated Diagnoses Date/Ti me COLONOSCOPY FLEXIBLE PROXIMA L DIAGNOSTIC Recall History of colonic polyps Scheduled Referrals Name Type Priority Associated Diagnoses Orde r Schedule SLEEP MEDICINE REFERRAL OP Referral Within 10 days (routine) Suspected sleep apnea PAF (paroxysmal atrial fibrillation) (HCC) Ordered: 05/10/2024 Health Maintenance Due Date Last Done Comments [...] as of this encounter Visit Diagnoses Diagnosis Suspected sleep apnea- Primary PAF (paroxysmal atrial fibrillation) (HCC) Atrial fibrillation SVT (supraventricular tachycardia) (HCC) Other specified cardiac dysrhythmias GARZA (dyspnea on exertion) Other dyspnea and respiratory abnormality documented in this encounter Care Teams Hold Worker Relationship Specialty Start Date End Date Barry Zhou MD [address] [place] [address] PCP - General Family Medicine 01/15/21 documented as of this encounter"
--- OUTSIDE RECORDS SUMMARY | 2024-06-18 23:10 | External Medical Summary | Summary of Care ---
Author Name Unknown Organization [facility] Address [address] [place] [address] Phone [phone] Care Team Providers Care Manager Investigations Name Role Phone Barry Zhou MD Primary Care Provider + Reason for Visit * Reason Comments Emergency Department Follow-Up Pt here f or a ER f/u from [facility] on 04/05 for disorientation and dizziness and 04/07 for vertigo and palp. Pt reports that she is feeling well today. Encounter Details Date Type Department Care Team (Late st Contact Info) Description 04/19/2024 9:00 AM EDT Office Visit Family Practice [facility] [address] [place] [address] Barry Zhou MD [address] [facility] [place] [address] Paroxysmal atrial fibrillation (HCC)*; History of acute alcohol intoxication Allergies No known active allergiesdocumented as of this encounter (statuses as of 04/19/2024) Medications Medication Sig Dispensed Refills Start Date End Date Status IBUPROFEN 200 MG PO CAPS as needed Active Multiple Vitamins-Minerals (MULTIVITAMIN ADULT) TABS Take by mouth. Active Metoprolol Succinate ER 25 MG Oral Tablet Extended Release 24 Hour (toPROL XL) Take 1 Tablet by mouth in the morning. 04/07/2024 Active Ketoconazole 2 % External Cream Apply to area on chest twice a day for 2 weeks. 15 g 06/06/2023 04/19/2024 Discontinued( Medication List Clean Up) documented as of this encounter (statuses as of 04/19/2024) Active Problems Problem Noted Date Diagnosed Date Paroxysmal atrial fibrillation 04/19/2024 Toenail fungus 09/11/2022 Well adult exam 01/15/2021 Overview: 08/22 colon WNL osbaldo 5y? Pap & HPV WNL 2020-osbaldo 5y Colon 08/20 fair prep osbaldo 1y Pap ok 5y. Daughters twin Nola (depression), Marina, older son, -Carroll Family history of malignant melanoma 12/03/2013 documented as of this encounter (statuses as of 04/19/2024) Resolved Problems Problem Noted Date Diagnosed Date Resolved Date Ingrowing nail 09/26/2022 04/19/2024 Subungual hematoma of great toe 09/11/2022 04/19/2024 At risk of melanoma due to f inding dysplastic nevus 12/08/2014 09/22/2017 documented as of this encounter (statuses as of 04/19/2024) Immunizations Name Administration Dates Next Due COVID-19 mRNA, LNP-s, No Pre serve, 2-Dose Series (KIXEYE) 12/15/2020,11/24/2020 Seasonal Influenza Virus Vac cine, Unspecified [...] wine over 1-2 weeks. 04/24 ER intox @[place]. stopped ETOH after. PHQ-2 Answer Date Recorded [...] Sign Reading Time Taken Comments Blood Pressure 108/74 04/19/2024 8:58 AM EDT Pulse 66 04/19/2024 8:58 AM EDT Temperature 36.2 C (97.2 F) 04/19/2024 8:58 AM ED T Respiratory Rate 16 04/19/2024 8:58 AM EDT Oxygen Saturation 99% 04/19/2024 8:58 AM EDT Inhaled Oxygen Concentration - - Weight 102.1 kg (225 lb 1.6 oz) 04/19/2024 8:58 AM EDT Height 175.3 cm (5' 9.02") 04/19/2024 8:58 AM ED T Body Mass Index 33.22 04/19/2024 8:58 AM EDT documented in this encounter Progress Notes * Barry Zhou MD - 04/19/2024 9:32 AM EDT SUBJECTIVE: Mell Larios is a 53 year old female here for Emergency Department Follow-Up (Pt here for a ER f/u from [facility] on 04/05 for disorientation and dizziness and 04/07 for vertigo and palp. Pt reports that she is feeling well today.) . Here for ER followups. Patient states was at a work conference in [place] and recalls drinking 3 glasses of wine beforewaking up in the ER. ER report reviewed. Patient was found intoxicated unconscious with vomit on her in the conference hotel which was adjacent to her hotel. She denies any history of binge drinking.She typically drinks 1 or 2 glasses of wine every 1-2 weeks. She denies any symptoms of sexual assault. No vaginal soreness or bruising. No other bruising. ER did a head CT that was normal. Labs wereokay except for potassium 3.2. She had elevated alcohol level. She eventually sobered and was discharged back to her hotel. She drove home after she felt better and discussed with her . Two days later on April 07 felt 3 episodes of rapid heartbeat associated with shortness of breathdizziness some chest heaviness. She eventually called the office and was referred to emergency room. In the emergency room she was found to be in rapid AFib possible flutter heart rate 140-160. She was given 2 doses of diltiazem and she converted back to normal sinus rhythm. Cardiology consulted. As her chads 2 Vasc 2 score was only 1 and she was female no anticoagulation was recommended. She was started on metoprolol 25 mg. She has been taking it regularly. She notices slight decreased exercise tolerance such as climbing 3 flights of stairs feels pretty winded afterwards. This is new for her. No chest pain. No new palpitations. She is wearing a Zio monitor now. She has a echocardiogram scheduled. No fever, chills, chest pain, shortness of breath, headache, nausea, vomit, diarrhea, constipation or vision changes ROS: Negative except above. Past Medical History: Diagnosis Date Blood type A+ dysplastic nevus- back 10/04 Past Surgical History: Procedure Laterality Date DELIVERY 02/04/1995 [facility] DELIVERY 02/25/2002 [facility] COLONOSCOPY, DIAGNOSTIC (RECTUM) 08/30/2020 hyperplastic polyp, fair prep, diverticulosis, repeat 1 yr / COLONOSCOPY FLEXIBLE PROXIMAL DIAGNOSTIC performed by Forrest Mora MD at ENDOSCOPY [facility] COLONOSCOPY, DIAGNOSTIC (RECTUM) 08/01/2022 diverticulosis/recall 5 years/COLONOSCOPY FLEXIBLE PROXIMAL DIAGNOSTIC performed by Forrest Mora MD at ENDOSCOPY [facility] TREAT ECTOPIC , TUBE/OVARY 08/01/1999 Ectopic Preg,Non Remval TREAT ECTOPIC , TUBE/OVARY 09/01/1999 Ectopic Preg,Non Remval TREAT ECTOPIC , TUBE/OVARY 09/01/1999 Ectopic Preg,Non Remval TREAT ECTOPIC , TUBE/OVARY 09/01/2000 Ectopic Preg,Non Remval TREAT ECTOPIC , TUBE/OVARY 09/01/2000 Ectopic Preg,[facility] Tube/Ovary Social History Socioeconomic History Marital status: Spouse name: komal Number of children: 3 Years of education: Not on file Highest education level: Not on file Occupational History 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 04/24 ER intox @[place] Drug use: No Sexual activity: Yes Partners: Male control/protection: Surgical Comment: tubal. twin daughters, older son. Other Topics Concern Not on file Social History Narrative Likes walking. Rides motorcycles. +helmets. Social Determinants of Health Financial Resource Strain: Not on file Food Insecurity: No Food Insecurity (09/07/2020) Hunger Vital Sign Worried About Running Out of Food in the Last Year: Never true Ran Out of Food in the Last Year: Never true Transportation Needs: Not on file Social Connections: Unknown (02/17/2024) Social Connections How often do you feel lonely or isolated from those around you? (Adult - for ages 18 years and over): Not on file Housing Stability: Not on file Family History Problem Relation Name Age of Onset Cancer Mother renal cell - metastatic - age 58 Other (Other) Mother hypoglycemia Cancer Grandmother (Maternal) Stomach CA Other (Other) Grandmother (Maternal) hypoglycemia Cancer Father melanoma - metastatic - age 58 Diabetes Father No Known Problems Brother No Known Problems Brother No Known Problems Brother Current Outpatient Medications Medication Sig Dispense Refill IBUPROFEN 200 MG PO CAPS as needed Multiple Vitamins-Minerals (MULTIVITAMIN ADULT) TABS Take by mouth. Metoprolol Succinate ER 25 MG Oral Tablet Extended Release 24 Hour (toPROL XL) Take 1 Tablet by mouth in the morning. No current facility-administered medications for this visit. Physical: BP 108/74 (BP Site: Left Arm, BP Position: Sitting, BP Cuff Size: Large) | Pulse 66 | Temp 36.2 C(97.2 F) (Tympanic) | Resp 16 | Ht 1.753 m (5' 9.02") | Wt 102.1 kg (225 lb 1.6 oz) | LMP 04/01/2018 | SpO2 99% | BMI 33.22 kg/m | BSA 2.23 m General-No apparent Distress Head, Eyes, Ears, Nose, Throat--Normocephalic, atraumatic Neck-Supple Lymph-no lymphadenopathy Lungs-Clear to Auscultation bilaterally Cardiovascular--Regular rate & Rhythm, +s1, s2, no murmur Abdomen-soft, nontender, nondistended + bowel sounds Extremities--no edema Neuro-alert & oriented x3 (I48.0) Paroxysmal atrial fibrillation (HCC) (primary encounter diagnosis) Plan: TSH WITH FREE T4 IF INDICATED, VITAMIN B12, FERRITIN Agree w/current plan--cont Toprol, f/u Zio & echo. Suspect "holiday heart" that triggered Afib episode (Z87.898) History of acute alcohol intoxication Plan: discussed--patient has stopped all ETOH & caffeine. Looking for a reset. Other than 8/5 episode, no hx binge ETOH, so does not appear to be at risk of ETOH abuse. counseled on diet/exercise I spent a total of 40-54 minutes (exact time 44 mins) on the date of service in preparation, delivery, and documentation of the care provided to Mell Larios excluding any time spent in the performance of separately billed services or time spent by another provider/QHP. (This note was completed using the dictation program Fluency Direct. As such, there may be misspellings, word substitutions, or other variations that should not change the essence of the clinical content of this encounter note.If there is need for further clarification, please direct questions to the provider listed above.) Barry Zhou MD documented in this encounter Plan of Treatment Upcoming Encounters Date Type Department Care Team (Late st Contact Info) Description 04/22/2024 3:00 PM EDT Cardiac Studies Cardiac Studies, [facility] [address] [facility] [place] [address] 05/10/2024 11:30 AM EDT Office Visit Cardiology, [facility] [address] [facility] [place] [address] Adam De Anda, PATommieC [address] [facility] [place] [address] 07/19/2024 7:45 AM EST Imaging Radiology [facility] 1st Floor, [place] [address] [place] [address] Scheduled Orders Name Type Priority Associated Diagnoses Orde r Schedule TSH WITH FREE T4 IF INDICATED Lab Routine Paroxysmal atrial fibrillation (HCC) Ordered: 04/19/2024 VITAMIN B12 Lab Routine Paroxysmal atrial fibrillation (HCC) Ordered: 04/19/2024 FERRITIN Lab Routine Paroxysmal atrial fibrillation (HCC) Ordered: 04/19/2024 Scheduled Procedures Name Priority Associated Diagnoses Date/Ti me COLONOSCOPY FLEXIBLE PROXIMA L DIAGNOSTIC Recall History of colonic polyps Health Maintenance Due Date Last Done Comments Cologuard 2015 Fecal Occult Blood Test 2015 Sigmoidoscopy 2015 Depression Screening 09/07/2021 09/07/2020 Diabetes Screening 04/20/2024 09/14/2020, 1 , 06/30/2017, Additional history exists Postponed from 09/14/2023 (Other) Influenza Vaccine (FLU shot) (#1) 2024 05/23/2019 Mammogram 07/17/2024 07/17/2023, 050 05/2023, 07/05/2022, Additional history exists Lipid Panel 09/14/2025 09/14/2020, 06/02, 06/30/2017, Additional history exists Colonoscopy 08/01/2027 08/01/2022, 1209/2021, 08/30/2020, Additional history exists Colorectal Cancer Screening 08/01/2027 PAP SMEAR-EVERY 5 YRS,AGES 21-100 07/18/2028 07/18/2023, 06/20/2020, 06/06/2017, Additional history exists DTaP,Tdap,and Td Vaccines (3 - Td or Tdap) 09/07/2030 [...] as of this encounter Visit Diagnoses Diagnosis Paroxysmal atrial fibrillation (HCC)- Primary Atrial fibrillation History of acute alcohol intoxication Nondependent alcohol abuse, in remission documented in this encounter Care Teams Manager Investigations Relationship Specialty Start Date End Date Barry Zhou MD [address] [place] [address] PCP - General Family Medicine 01/15/21 documented as of this encounter
--- OUTSIDE RECORDS SUMMARY | 2024-06-18 23:10 | External Medical Summary | Summary of Care ---
Author Name Unknown Organization [facility] Address [address] [place] [address] Phone [phone] Care Team Providers Care Document Improvement Specialist Name Role Phone Barry Zhou MD Primary Care Provider + Reason for Referral * Precert (Diagnostic Medical) (Within 10 days (routine)) - Authorized Specialty Diagnoses / Procedures Referred By Contac t Referred To Contact Cardiac Studies Diagnoses Paroxysmal atrial fibrillation (HCC) Atypical atrial flutter (HCC) Procedures ECHO, COMPLETE (2D), TRANS-THORACIC Maxwell Bennett DO [address] [place] [address] Referral ID Status Reason Start Date Expiration Date V isits Requested Visits Authorized [id number] Authorized Precert 04/07/2024 999 999 Reason for Visit * Reason Onset Date Comments Follow Up 04/07/2024 Encounter Details Date Type Department Care Team (Late st Contact Info) Description 04/07/2024 Telephone Cardiology, [facility] [address] [place] [address] Maxwell Bennett DO [address] [place] [address] Follow Up Allergies No known active allergiesdocumented as of this encounter (statuses as of 04/23/2024) Medications Medication Sig Dispensed Refills Start Date End Date Status IBUPROFEN 200 MG PO CAPS as needed Active Multiple Vitamins-Minerals (MULTIVITAMIN ADULT) TABS Take by mouth. Active Ketoconazole 2 % External Cream Apply to area on chest twice a day for 2 weeks. 15 g 06/06/2023 04/19/2024 Discontinued( Medication List Clean Up) Cephalexin 500 MG Oral CapsuleIndication s:Carbuncle and furuncle Take 1 Capsule by mouth in the morning and 1 Capsule at noon and 1 Capsule before bedtime. Do all this for 10 days. 30 Capsule 03/30/2024 04/09/2024 documented as of this encounter (statuses as of 04/23/2024) Active Problems Problem Noted Date Diagnosed Date Paroxysmal atrial fibrillation 04/19/2024 Toenail fungus 09/11/2022 Well adult exam 01/15/2021 Overview: 08/22 colon WNL osbaldo 5y? Pap & HPV WNL 2020-osbaldo 5y Colon 08/20 fair prep osbaldo 1y Pap ok 5y. Daughters twin Nola (depression), Marina, older son, -Carroll Family history of malignant melanoma 12/03/2013 documented as of this encounter (statuses as of 04/23/2024) Resolved Problems Problem Noted Date Diagnosed Date Resolved Date Ingrowing nail 09/26/2022 04/19/2024 Subungual hematoma of great toe 09/11/2022 04/19/2024 At risk of melanoma due to f inding dysplastic nevus 12/08/2014 09/22/2017 documented as of this encounter (statuses as of 04/23/2024) Immunizations Name Administration Dates Next Due COVID-19 mRNA, LNP-s, No Pre serve, 2-Dose Series (Soniqplay) 12/15/2020,11/24/2020 Seasonal Influenza Virus Vac cine, Unspecified Formulation 05/23/2019 TDAP (age 10 and older)(Boostrix) 09/07/2020 TDAP, Age 7 and older, IM (Adacel) 01/07/2008 Zoster Vaccine Recombinant (Shingrix) 01/15/2021 ,09/07/2020 documented as of this encounter Social History Tobacco Use Types Packs/Day Years Used Date Smoking Tobacco: Former Cigarettes Q uit: 09/01/2000 Smokeless Tobacco: Never Alcohol Use Standard Drinks/Week Comments Yes 0 (1 standard drink = 0.6 oz pur e alcohol) socally/rare PHQ-2 Answer Date Recorded PHQ Adult Total [...] encounter Miscellaneous Notes * Telephone Encounter - Landen Figueroa OSA - 04/13/2024 8:27 AM EDT Patient has been scheduled and hold released, thank you Valencia. NEW CARDIOLOGY at 11:30 AM (60 min)Arrive by 11:15 AM Friday May 10, 2024 Appointment Provider:[facility] And[facility] * Telephone Encounter - Valencia Christina RN - 04/12/2024 2:01 PM EDT Conversion completed for 05/10/24 as per below. Please schedule and remove hold. * Telephone Encounter - Landen Figueroa OSA - 04/08/2024 2:28 PM EDT Patient checked out and I rescheduled her ECHO for: 04/22/2024 Status: Harriett Time: 3:00 PM Length: 60 Visit Type: ECHOCARDIOGRAM [[id number]] Reg Status: Verified Copay: $0.00 Provider: ECHO UNA GW Patient also chose a RUNNER ON appt with Adam Guevaraardo on: 05/10/24 at 1130 am for the CLOS IN REL option. Patient is aware of the date and time, please open the a lot, and I will remove the hold, thank you. * Telephone Encounter - Valencia Carrillo CMA - 04/08/2024 12:26 PM EDT Patient scheduled for Zio placement at 2:15 pm today (04-08-2024). Echo currently scheduled for 06-17-2024. Will route to scheduling to see if sooner appointment is available. * Telephone Encounter - Maxwell Bennett DO - 04/07/2024 5:43 PM EDT Patient seen and discharged from the emergency room having presented with newly recognized atrial fibrillation/atrial flutter. After receiving 2 doses of diltiazem she converted to sinus rhythm and was discharged. Her FLG7TR4-INCo score is 1 for risk factor of female sex and therefore her risk of cardioembolic stroke is estimated to be low and therefore she is not being discharged on an anticoagulant. Cardiology nursing/scheduling, please help arrange 14-day Zio patch to be placed this week if possible. Echocardiogram within the next month. Follow-up with me or AP soon thereafter. She was discharged on metoprolol succinate 25 mg daily. Maxwell Bennett DO documented in this encounter Plan of Treatment Upcoming Encounters Date Type Department Care Team (Late st Contact Info) Description 05/10/2024 11:30 AM EDT Office Visit Cardiology, [facility] [address] [place] [address] Adam De Anda PA-C [address] [place] [address] 07/19/2024 7:45 AM EST Imaging Radiology [facility] 1st Floor, [place] [facility] [place] [address] Scheduled Orders Name Type Priority Associated Diagnoses Orde r Schedule EXTERNAL EKG 8 TO 15 DAYS Holter Routine Paroxysmal atrial fibrillation (HCC) Atypical atrial flutter (HCC) Expected: 04/08/2024 (Approximate), Expires: 04/07/2025 Scheduled Procedures Name Priority Associated Diagnoses Date/Ti [...] Not on filedocumented as of this encounter Results * ECHO, COMPLETE (2D), TRANS-THORACIC (04/22/2024 3:40 PM EDT) LEFT VENTRICULAR EJECTION FRACTION 55 % [facility] 04/22/2024 2:46 PM EDT Maxwell Bennett DO [facility]ARDIOLOGY [facility] CARDIOLOGY documented in this encounter Visit Diagnoses Diagnosis Paroxysmal atrial fibrillation (HCC)- Primary Atrial fibrillation Atypical atrial flutter (HCC) Atrial flutter documented in this encounter Care Teams Document Improvement Specialist Relationship Specialty Start Date End Date Barry Zhou MD [address] [place] [address] PCP - General Family Medicine 01/15/21 documented as of this encounter
[2024-06-18 23:28] LABS: ANTI-Xa, UFH(UnfractionatedHep 0.15 IU/ml (0.3-0.7)
[2024-06-19] MEDS: HEPARIN SOD (PORCINE) 1000 UNIT/ML IV ONE (00:08)
[2024-06-19 06:43] LABS: Basophils # (auto) 0.04 K/uL (0.00-0.20); Basophils % (auto) 0.5 %; Eosinophils # (auto) 0.06 K/uL (0.00-0.50); Eosinophils % (auto) 0.7 %; Hematocrit (blood only) 40.2 % (37.0-47.0); Hemoglobin 13.8 g/dl (12.0-16.0); Immature Granulocytes # (auto) 0.03 K/uL (0.01-0.20); Immature Granulocytes % (auto) 0.3 %; Lymphocytes # (auto) 2.65 K/uL (1.20-3.40); Lymphocytes % (auto) 30.7 %; Mean Corpuscular Hemoglobin 30.4 pg (25.0-34.0); Mean Corpuscular Hgb Conc 34.3 g/dL (32.0-36.0); Mean Corpuscular Volume 88.5 fL (80.0-100.0); Mean Platelet Volume 10.6 fL (9.4-12.4); Monocytes # (auto) 0.69 K/uL (0.11-0.59); Neutrophils # (auto) 5.17 K/uL (1.40-6.50); Neutrophils % (auto) 59.8 %; Platelet Count 259 K/uL (130-400); RDW Coefficient of Variation 12.8 % (11.5-14.5); RDW Standard Deviation 41.8 fL (36.4-46.3); Red Blood Count 4.54 M/uL (4.20-5.40); White Blood Count 8.64 K/ul (4.8-10.8)
[2024-06-19 07:10] LABS: BUN Creatinine Ratio 21.5 (10-20); Calcium 8.5 mg/dl (8.6-10.3); Creatinine Clr Calc Pharmacy 103.6 ml/min; Magnesium 2.1 mg/dl (1.7-2.4); Potassium 4.2 mmol/L (3.5-5.1)
[2024-06-19 07:34] LABS: ANTI-Xa, UFH(UnfractionatedHep 0.49 IU/ml (0.3-0.7)
[2024-06-19] MEDS: METOPROLOL TARTRATE 25 MG TAB PO SCH (08:08)
[2024-06-19] MEDS: MULTIVITAMIN TAB PO SCH (08:09)
--- NOTE | 2024-06-19 10:17 | Cardiology Progress Note ---
Date of Service June 19, 2024 Assessment & Plan (1) Atrial flutter: Plan 54 year old female admitted with recurrent symptomatic atrial flutter with a rapid ventricular response. Symptom onset 11 AM. Initial episode was in April 2024, suspect holiday heart trigger at that time. Heart rates typically in the 60s to 80s via self-monitoring (Fitbit) Status post spontaneous conversion from typical atrial flutter to sinus rhythm at 12:22 AM without conversion pause [id number] Score 1 point Options of management discussed with patient and . Multiple questions answered to the best of my ability. Recommendations: Increase Metoprolol succinate to 37.5 mg/day Anticoagulate with apixaban (Eliquis) for at least the next month Outpatient Electrophysiology Consultation; Stress testing on 07/15/2024 Sleep apnea evaluation scheduled in August 2024 Admission and Anticipated Discharge Date Admission Date: June 18, 2024 Supervising Physician Co-Signing Physician Notes I spent a total of 30 minutes on the date of service in preparation, delivery, and documentation of the care provided to this patient, excluding any time spent in the performance of separately billed services. I have personally performed a history and physical examination on the patient. I have reviewed the advance practitioner's documentation, and I agree with, and take responsibility for the plan of care. Patient converted back to sinus rhythm. No conversion pauses. Doing well but tired. Would keep Metoprolol succinate at 25mg PO daily due to lower BP readings. Patient is interested in discussing Atrial flutter ablation with EP. Will arrange outpatient EP follow up. Subjective Patient seen and examined. Chart, medications, telemetry reviewed. at bedside. Feeling OK. Heart rates typically in the 60s to 80s via self-monitoring (Fitbit) Admitted with recurrent symptomatic atrial flutter with rapid ventricular response. Symptom onset 11 AM. Status post spontaneous conversion from typical atrial flutter to sinus rhythm at 12:22 AM without conversion pause Review of Systems Review of Systems: Complete Review of Systems is as stated above, negative, or noncontributory. Physical Exam Physical Exam: General: Alert and oriented x3. No acute distress. Comfortable. Cooperative. Laying supine. at bedside. Eyes: PER. Conjunctiva pink, sclera clear. HENT: Normocephalic. Atraumatic. Neck: No carotid bruits. No JVD. No HJR. Heart: RRR, 64 bpm. No murmur. Lungs: Clear to auscultation. Abdomen: +BS. Extremities: No clubbing, cyanosis, or edema. Pulses: Posterior tibial=1-2/4. Limited neurological examination: No focal deficit. Results & Data Vital Signs (Past 12 Hours) Vital Signs Temp Pulse Pulse Resp BP Pulse Ox O2 Del Method 06/19/24 07:23 36.7 C 57 L 16 94/61 L 99 Room Air 06/19/24 07:00 58 L 06/19/24 03:07 36.4 C L 66 18 103/72 98 Room Air 06/19/24 00:22 58 L 06/18/24 23:54 36.4 C L 119 H 17 98/66 L 98 Room Air 06/18/24 23:00 124 H Laboratory Results Cardiac Enzymes 06/18/24 Range/Units 12:45 Troponin I High Sens 2.3 (0-14) pg/ml Coagulation 06/18/24 Range/Units 12:45 PT 10.8 (9.0-12.0) Seconds APTT 27 (21-31) Seconds CBC 06/18/24 06/19/24 Range/Units 12:45 06:14 WBC 11.51 H 8.64 (4.8-10.8) K/ul RBC 5.26 4.54 (4.20-5.40) M/uL Hgb 16.3 H 13.8 (12.0-16.0) g/dl Hct 46.0 40.2 (37.0-47.0) % Plt Count 331 259 (130-400) K/uL Neut # (Auto) 8.14 H 5.17 (1.40-6.50) K/uL Lymph # (Auto) 2.35 2.65 (1.20-3.40) K/uL [place] # (Auto) 0.89 H 0.69 H (0.11-0.59) K/uL Eos # (Auto) 0.05 0.06 (0.00-0.50) K/uL Baso # (Auto) 0.04 0.04 (0.00-0.20) K/uL Comprehensive Metabolic Panel 06/18/24 06/19/24 Range/Units 12:45 06:14 Sodium 140 140 (136-145) mmol/L Potassium 3.9 4.2 (3.5-5.1) mmol/L Chloride 103 107 (98-107) mmol/L Carbon Dioxide 29 30 (21-32) mmol/L BUN 20 17 (6-23) mg/dl Creatinine 0.86 0.79 (0.6-1.2) mg/dl Glucose 89 100 H (70-99(Fasting)) mg/dl Calcium 9.8 8.5 L (8.6-10.3) mg/dl Intake and Output 06/18/24 06/19/24 06/19/24 22:59 06:59 14:59 Intake Total 1440.166 / 2013.916 574.750 / 2013.6 1005 / 1005 Balance 1440.166 / 6 574.750 / 6 1005 / 1005 Intake: IV 1440.166 / 1814.916 374.750 / 7374.629 9798 / 1005 Heparin Sodium/Dextrose 25,000 44.333 / 291.000 246.667 / 291.000 units In 500 ml @ 1,100 UNITS/ HR 22 mls/hr IV .[id number] [facility] Rx #:[id number] Magnesium Sulfate / D5w 1 gm In 100 / 100 100 ml @ 50 mls/hr IV ONE ONE Rx#:[id number] Potassium Chloride 10 meq In 1005 / 1005 Lactated Ringer's 1,000 ml @ 100 mls/hr IV .Q10H3M ONE Rx#: [id number] Sodium Chloride 0.9% 1,000 ml @ 1374.5 / 1374.5 70 mls/hr IV .[id number] [facility] Rx#: [id number] dilTIAZem HCL 125 mg In 21.333 / 49.416 28.083 / 49.416 0 / 0 Dextrose 5% 100 ml @ 5 MG/HR 5 mls/hr IV .Q24H [facility] Rx#: [id number] Oral 200 / 200 Other: Weight 100.698 kg 102.2 kg Weight Measurement Method Built in [facility] Diagnostic Findings April 2024 Zio Monitor: Patient had a min HR of 47 bpm, max HR of 188 bpm, and avg HR of 68 bpm. Predominant underlying rhythm was Sinus Rhythm. First Degree AV Block was present. Slight P wave morphology changes were noted. 28 Supraventricular Tachycardia runs occurred, the run with the fastest interval lasting 11 beats with a max rate of 188 bpm, the longest lasting 17.5 secs with an avg rate of 132 bpm. Some episodes of Supraventricular Tachycardia may be possible Atrial Tachycardia with variable block. Isolated SVEs were rare (<1.0%), SVE Couplets were rare (<1.0%), and SVE Triplets were rare (<1.0%). Isolated VEs were rare (<1.0%, 87), VE Couplets were rare (<1.0%, 5), and VE Triplets were rare (<1.0%, 1). The patient recorded 2 event markers and 2 diary entries which correlated with sinus rhythm and sinus rhythm with atrial ectopic beats. Impression: Sinus rhythm, average rate 68 beats per minute with 28 runs of supraventricular tachycardia. Distinct atrial fibrillation or flutter not noted. Longest episode 17.5 seconds in duration [facility] 2023 TTE Interpretation Summary (as per Dr. Ivan): The left ventricular cavity size is normal. The LV wall thickness is borderline increased (concentric). The left ventricular wall motion is normal. The qualitative LV ejection fraction is 55-59% (normal). The left ventricular diastolic function is normal. The left atrium is normal sized. The mitral valve leaflets are very mildly thickened with trace mitral insufficiency. There is no other valvular disease (1) Atrial flutter Atrial flutter type: typical Qualified Code(s): I48.3 - Typical atrial flutter
--- NOTE | 2024-06-19 13:09 | Hospitalist Progress Note ---
Date of Service June 19, 2024 Assessment & Plan (1) Atrial flutter with rapid ventricular response: Plan: Patient is 54 year old female with PMH PAF not on anticoagulation presented to ER with c/o palpitations today. In ER found to have HR 130's-140's, other vitals stable. EKG consistent with atrial flutter In ER given 1L NSS, Lopressor 2.5 IV, started on diltiazem drip, Ativan 1 mg SL, 324mg aspirin. HR remains in 130's. Atrial flutter RVR [id number] Score 1 point Normal TSH --CXR:No acute cardiopulmonary findings. --04/08/2204/22/2024 with EF: 55-59%, normal LV wall motion, trace mitral insufficiency Spontaneously converted to sinus Diltiazem drip discontinued Metoprolol succinate dose increased to 37.5 mg daily Monitor and replete electrolytes as needed Appreciate cardiology input Likely on IV heparin for anticoagulation Plan to discharge on Eliquis for at least 1 month per cardiology Needs outpatient EP study Scheduled for outpatient sleep apnea, stress test Needs follow-up with cardiology on discharge DVT Px On Heparin IV Plan to transition to Eliquis on discharge Code Status Full Code Admission and Anticipated Discharge Date Admission Date: June 18, 2024 Subjective Patient is seen and examined at bedside Spontaneously converted to sinus overnight Palpitations, dizziness resolved Denies any chest pain, dyspnea, nausea, vomiting, abdominal pain No other complaints today Family at bedside Review of Systems Review of Systems: All systems reviewed & are unremarkable except as noted in Subjective Physical Exam Physical Exam: Physical Exam: Vitals signs as noted above General Appearance:Moderately built and nourished, no apparent distress Head: normocephalic, Atraumatic Eyes: normal inspection, EOMI Neck: supple, Trachea midline Respiratory/Chest: Normal breath sounds, CTA, No accessory muscle use Cardiovascular: S1, S2, No murmur Abdomen/GI:Soft, Non tender, Bowel sounds present Extremities/Musculoskeletal:normal inspection, no edema Neurologic/Psych:AAOX3, grossly no focal neurological deficits Skin: normal color, warm Results & Data Results & Data Vital Signs (Past 12 Hours) Vital Signs Temp Pulse Pulse Resp BP Pulse Ox O2 Del Method 06/19/24 10:58 36.8 C 59 L 18 96/63 L 98 Room Air 06/19/24 10:36 67 108/70 06/19/24 09:00 60 100/41 L 06/19/24 07:23 36.7 C 57 L 16 94/61 L 99 Room Air 06/19/24 07:00 58 L 06/19/24 03:07 36.4 C L 66 18 103/72 98 Room Air Laboratory Results Short CBC 06/19/24 Range/Units 06:14 WBC 8.64 (4.8-10.8) K/ul Hgb 13.8 (12.0-16.0) g/dl Hct 40.2 (37.0-47.0) % Plt Count 259 (130-400) K/uL BMP 06/18/24 06/19/24 12:45 06:14 Sodium 140 140 Potassium 3.9 4.2 Chloride 103 107 Carbon Dioxide 29 30 BUN 20 17 Creatinine 0.86 0.79 Glucose 89 100 H Calcium 9.8 8.5 L
[2024-06-19] MEDS: APIXABAN 5 MG TABLET PO SCH (13:14)
[2024-06-19] MEDS: METOPROLOL SUCC 25MG EXT REL TAB PO SCH (15:56)
--- NOTE | 2024-06-19 16:26 | Discharge Summary ---
Date of Service June 19, 2024 Admission HPI Per Admitting Provider Patient is 54 year old female with PMH PAF not on anticoagulation presented to ER with c/o palpitations today. patient reports was working from home today when she had sudden onset of palpitations, sensation of heart racing, headache, shortness of breath and some nausea without vomiting. She reports checking her Fitbit and heart rate was between 130s to 140s and reports home BP 120/74. Denies chest pain, dizziness, syncope. Denies any recent illness. She reports she has stress related to work. Denies any alcohol use since April. Denies fever/chills, diaphoresis, diarrhea, constipation, syncope, vision changes, neck pain, cough, sore throat, rhinorrhea, abdominal pain, paresthesias, extremity weakness, extremity edema, rashes, urinary symptoms. Per chart review history [facility] ER visit 04/05/2024 for atrial fibrillation RVR started on diltiazem drip and converted to sinus rhythm and was able to be discharged home from ER on metoprolol succinate 25 mg daily and was thought to be secondary to ETOH intake/holiday heart. Patient had followed up with [facility] cardiology and had echo on 04/08/2204/22/2024 with EF: 55-59%, normal LV wall motion, trace mitral insufficiency. Had outpatient ZIO monitor that did not show atrial fibrillation but showed brief runs of SVT per chart review. Admission Exam Per Admitting Provider General: no distress, WDWN Head: normocephalic, atraumatic Eyes: conjunctiva non-injected, anicteric ENT: normal inspection external ears, nose, mucous membranes moist Neck: supple, trachea midline Lungs: clear, no respiratory distress, no wheezing/rhonchi/rales CV: irregularly irregular, rate 132, no pretibial edema Abd: normal BS, soft, non-tender Ext: no cyanosis, no calf tenderness Neuro: A&O x 3, no focal deficits noted, normal affect Skin: warm, dry Principal Diagnosis Atrial flutter with rapid ventricular response Discharge Data Allergies Allergy/AdvReac Type Severity Reaction Status Date / Time lavender (Lavandula AdvReac Rash Unverified 06/18/24 14:44 angustifolia) Consultations 06/18/24 14:31 ED Decision to Admit Stat 06/18/24 15:25 Consult Cardiology Routine Procedures Performed Short CBC 06/19/24 Range/Units 06:14 WBC 8.64 (4.8-10.8) K/ul Hgb 13.8 (12.0-16.0) g/dl Hct 40.2 (37.0-47.0) % Plt Count 259 (130-400) K/uL BMP 06/19/24 06:14 Sodium 140 Potassium 4.2 Chloride 107 Carbon Dioxide 30 BUN 17 Creatinine 0.79 Glucose 100 H Calcium 8.5 L Ordered Studies 06/18/24 12:35 CT head/brain wo con Stat Hospital Course (1) Atrial flutter with rapid ventricular response: Patient is 54 year old female with PMH PAF not on anticoagulation presented to ER with c/o palpitations today. In ER found to have HR 130's-140's, other vitals stable. EKG consistent with atrial flutter In ER given 1L NSS, Lopressor 2.5 IV, started on diltiazem drip, Ativan 1 mg SL, 324mg aspirin. HR remains in 130's. Atrial flutter RVR [id number] Score 1 point Normal TSH --CXR:No acute cardiopulmonary findings. --04/08/2204/22/2024 with EF: 55-59%, normal LV wall motion, trace mitral insufficiency Spontaneously converted to sinus Diltiazem drip discontinued Continue metoprolol succinate dose 25 mg daily (no increased dose given low BP) Monitor and replete electrolytes as needed Appreciate cardiology input IV heparin transition to Eliquis for anticoagulation Plan to discharge on Eliquis for at least 1 month per cardiology Needs outpatient EP study Scheduled for outpatient sleep apnea, stress test Needs follow-up with cardiology on discharge DVT Px Eliquis Code Status Full Code Total Time Total Time Spent Total Time Spent (In Minutes): 38 minutes Discharge Plan Discharge Items Patient Disposition: Home - Self-Care Reason For Visit: AFLUTTER Discharge Diagnosis: Atrial flutter RVR Activity: Per Instructions section Exercise/Sports: Wait until after follow-up appointment Non-emergency contact: Primary Care Provider and [employer] Call non-emergency contact if: you have any medication questions, your symptoms worsen, your pain is concerning for you and you have a fever Follow-up/Referrals: Barry Zhou MD [Primary Care Provider] - Diet: Heart Healthy Addtl Attending Provider Instructions: Follow-up with your primary care physician in 1 week Follow-up with your interior painter as recommended --Get outpatient sleep study, stress test as recommended/scheduled --Continue metoprolol succinate 25 mg daily -- Start taking Eliquis 5 mg two times a day until further recommendations from your interior painter Seek immediate medical attention if your symptoms reoccur or worsen Please take all medications as instructed on discharge list below. Please call if you have any questions or problems. You can reach a [facility] hospitalist on duty at [facility] 24 hours a day by calling [phone] Pending Studies at Discharge: No Stand-Alone Forms: [facility], Smoking Cessation Medications and DC Order Prescriptions: New Eliquis 5 mg Tablet 5 mg PO BID Qty: 60 0RF Continued multivitamin Tablet 1 tab PO DAILY metoprolol succinate [Toprol XL] 25 mg tablet extended release 24 hr 25 mg PO DAILY Qty: 90 3RF ascorbic acid (vitamin C) [Vitamin C] 500 mg Tablet 500 mg PO DAILY cholecalciferol (vitamin D3) [Vitamin D3] 10 mcg (400 unit) Tablet 400 unit PO DAILY Rx Instructions: Pt unsure of dose ferrous sulfate 324 mg (65 mg iron) Tablet,Delayed Release (Dr/Ec) 324 mg PO Q OTHER DAY Discharge Orders: Discharge Order (Routine); Ordered 06/19/24 Ordered By: Nicolás Dubose Admission Data Admit Date/Time: 06/18/24 14:45 Attending Provider: Nicolás Dubose Admit Provider: Wan Meadows Primary Care Provider: Barry Zhou Other Providers: Wan Meadows; Krunal Gonzáles
--- NOTE | 2024-06-19 16:59 | Communication Note ---
Date of Service: June 19, 2024 Patient uncomfortable to be discharged today. Will continue to monitor overnight and likely discharge tomorrow if remains stable.
[2024-06-20 06:10] LABS: Hematocrit (blood only) 38.5 % (37.0-47.0); Hemoglobin 13.4 g/dl (12.0-16.0); Mean Corpuscular Hgb Conc 34.8 g/dL (32.0-36.0); Mean Corpuscular Volume 89.1 fL (80.0-100.0); Mean Platelet Volume 10.6 fL (9.4-12.4); Platelet Count 255 K/uL (130-400); RDW Coefficient of Variation 12.7 % (11.5-14.5); Red Blood Count 4.32 M/uL (4.20-5.40); White Blood Count 8.28 K/ul (4.8-10.8)
[2024-06-20 06:19] LABS: Calcium 8.8 mg/dl (8.6-10.3); Potassium 3.9 mmol/L (3.5-5.1)
[2024-06-20 06:25] LABS: BUN Creatinine Ratio 18.2 (10-20); Creatinine Clr Calc Pharmacy 92.9 ml/min
[2024-06-20 07:59] VITALS: BP 125/72; RESP 18; TEMP 97.5; O2SAT 100
[2024-06-20] MEDS: METOPROLOL SUCC 25MG EXT REL TAB PO SCH (08:22)
--- NOTE | 2024-06-20 09:58 | Hospitalist Progress Note ---
Date of Service June 20, 2024 Assessment & Plan (1) Atrial flutter with rapid ventricular response: Plan: Patient is 54 year old female with PMH PAF not on anticoagulation presented to ER with c/o palpitations today. In ER found to have HR 130's-140's, other vitals stable. EKG consistent with atrial flutter In ER given 1L NSS, Lopressor 2.5 IV, started on diltiazem drip, Ativan 1 mg SL, 324mg aspirin. HR remains in 130's. Atrial flutter RVR [id number] Score 1 point Normal TSH --CXR:No acute cardiopulmonary findings. --04/08/2204/22/2024 with EF: 55-59%, normal LV wall motion, trace mitral insufficiency Spontaneously converted to sinus Diltiazem drip discontinued Continue metoprolol succinate dose 25 mg daily (no increased dose given low BP) Monitor and replete electrolytes as needed Appreciate cardiology input Continue Eliquis for anticoagulation Plan to discharge on Eliquis for at least 1 month per cardiology Needs outpatient EP study Scheduled for outpatient sleep apnea, stress test Needs follow-up with cardiology on discharge Continue current management DVT Px Eliquis Code Status Full Code Admission and Anticipated Discharge Date Admission Date: June 18, 2024 Subjective Patient is seen and examined at bedside States feeling tired today Remains in sinus No new complaints No recurrence of palpitations, dizziness Denies any chest pain, dyspnea, nausea, vomiting, abdominal pain Family at bedside Plan to be discharged home today Review of Systems Review of Systems: All systems reviewed & are unremarkable except as noted in Subjective Physical Exam Physical Exam: Physical Exam: Vitals signs as noted above General Appearance:Moderately built and nourished, no apparent distress Head: normocephalic, Atraumatic Eyes: normal inspection, EOMI Neck: supple, Trachea midline Respiratory/Chest: Normal breath sounds, CTA, No accessory muscle use Cardiovascular: S1, S2, No murmur Abdomen/GI:Soft, Non tender, Bowel sounds present Extremities/Musculoskeletal:normal inspection, no edema Neurologic/Psych:AAOX3, grossly no focal neurological deficits Skin: normal color, warm Results & Data Results & Data Vital Signs (Past 12 Hours) Vital Signs Temp Pulse Pulse Resp BP Pulse Ox O2 Del Method 06/20/24 08:11 61 06/20/24 07:58 36.4 C L 59 L 18 125/72 100 Room Air 06/20/24 04:14 36.5 C 54 L 16 94/61 L 96 Room Air 06/20/24 00:33 36.4 C L 58 L 17 104/66 97 Room Air 06/19/24 22:26 58 L Laboratory Results Short CBC 06/20/24 Range/Units 05:27 WBC 8.28 (4.8-10.8) K/ul Hgb 13.4 (12.0-16.0) g/dl Hct 38.5 (37.0-47.0) % Plt Count 255 (130-400) K/uL BMP 06/20/24 05:27 Sodium 137 Potassium 3.9 Chloride 107 Carbon Dioxide 26 BUN 16 Creatinine 0.88 Glucose 92 Calcium 8.8
[2024-06-20 10:39] VITALS: PULSE 58
== END 2024-06-20 12:15 | disposition home or self-care (01) | DRG 310 ==
LOC: ED 12:12 → 2S 14:45 → SUATTDRO 14:45 → 2S 15:14